=== PATIENT | female | born 1965 | race Caucasian/White ===

== ENCOUNTER 2019-12-10 08:00 | Outpatient (CLI) | payer BC, SELFPAY ==
--- NOTE | ~2019-12-10 | MM_ITS ---
EXAMINATION: MM scrn marylu implant BI w sha HISTORY: Screening mammogram TECHNIQUE: Craniocaudal and mediolateral oblique 3-D tomosynthesis images with implant displacement a nd synthetic 2-D images were generated. Craniocaudal and mediolateral oblique views of the breasts wi thout implant displacement were obtained using full field digital mammography. CAD analysis was submi tted and interpreted. COMPARISON: 07/23/2016 diagnostic right implant digital mammogram 07/18/2016 bilateral implant digital screening mammogram examination BREAST PARENCHYMAL COMPOSITION: The breasts are heterogeneously dense, which may obscure small masses . FINDINGS: Status post bilateral augmentation mammoplasty. Stable fibroglandular asymmetry. There is no evidence of suspicious mass, calcification, or senior network architect ural distortion to suggest malignancy in either breast. There has been no suspicious interval change. IMPRESSION: 1. No mammographic evidence of malignancy. 2. Recommend routine screening mammography in one year. BI-RADS Category 1: Negative Reviewed, dictated and finalized at location A.
== END 2019-12-10 08:01 | disposition home or self-care (01) ==
LOC: ANHIMG 08:05
PROVIDERS: PCP Family Medicine; Visit Provider Nurse Practitioner Family
DX: Z12.31 Encounter for screening mammogram for malignant neoplasm of breast (principal)
CPT/HCPCS: 77063; 77067

== ENCOUNTER 2020-11-29 14:59 | Emergency (ER) | payer BC, SELFPAY ==
--- NOTE | 2020-11-29 15:10 | ECG_ITS ---
Measurements Intervals [place] Rate: 74 P: 64 MA: 144 QRS: 71 QRSD: 88 T: 60 QT: 352 QTc: 393 Interpretive Statements SINUS RHYTHM POSSIBLE LEFT ATRIAL ENLARGEMENT BORDERLINE ECG Electronically Signed On 11-29-2020 15:26:03 CDT by Mehdi Bella D.O.
[2020-11-29 15:11] VITALS: BP 128/83; PULSE 76; RESP 20; TEMP 36.3; O2SAT 98
[2020-11-29 15:25] LABS: Basophils Percent Auto 0.5 % (0.2-1.2); Eosinophils Absolute Auto 0.1 K/mm3 (0-0.3); Eosinophils Percent Auto 1.8 % (0-4.4); Hematocrit 40.7 % (37.0-47.0); Hemoglobin 13.7 g/dL (12.0-15.0); Immature Granulocyte Absolute 0.01 K/mm3 (0.00-0.031); Immature Granulocyte Percent A 0.1 % (0-0.5); Lymphocytes Absolute Auto 3.74 K/mm3 (0.9-3.2); Lymphocytes Percent Auto 48.1 % (18.3-44.2); Mean Corpuscular HGB Conc 33.7 g/dl (32-36); Mean Corpuscular Hemoglobin 30.6 pg (26-34); Mean Corpuscular Volume 90.8 fl (80-100); Mean Platelet Volume 10.4 fl (7.4-10.4); Monocytes Absolute Auto 0.5 K/mm3 (0.1-0.6); Monocytes Percent Auto 6.3 % (2.6-8.5); Neutrophils Absolute Auto 3.4 K/mm3 (1.3-6.7); Neutrophils Percent Auto 43.2 % (45.5-73.1); Platelet Count Result 267 k/mm3 (150-375); Red Blood Count 4.48 M/mm3 (4.2-5.4); Red Cell Distribution Width 12.7 % (11.5-14.5); White Blood Count 7.8 K/mm3 (4.5-10.0)
[2020-11-29 15:30] LABS: INR 0.9; Prothrombin Time 12.9 Seconds (11.1-14.7)
[2020-11-29 15:31] LABS: Partial Thromboplastin Time 24.7 SECONDS (22.3-36.8)
[2020-11-29 15:32] LABS: Anion Gap 6 mmol/L (8-16); Blood Urea Nitrogen 19 mg/dL (7-17); Calcium 9.3 mg/dL (8.4-10.2); Carbon Dioxide 27 mmol/L (22-30); Chloride 105 mmol/L (98-107); Estimated CRCL calculation 55 ml/min; Estimated Glomerular Filt Rate > 60; Glucose 117 mg/dL (65-105); Sodium 138 mmol/L (137-145)
[2020-11-29 15:43] LABS: Troponin I < 0.012 ng/mL (0.000-0.034)
[2020-11-29 15:49] LABS: Atypical Lymphocytes Present; Platelet Estimate Adequate (Adequate)
--- NOTE | 2020-11-29 16:52 | PC.NURSE ---
patient at intake desk states How long is this going to take, I have already been here for over an hour. I am going to go to another hospital then. patient walked out of ED without difficulty and in no distress.
== END 2020-11-29 16:52 | disposition left against medical advice (07) ==
LOC: ANHED 17:02
PROVIDERS: Emergency Provider Emergency Medicine; PCP Family Medicine
DX: R06.02 Shortness of breath (principal)
CPT/HCPCS: 36415; 80048; 84484; 85025; 85610; 85730; 93005; 99199

== ENCOUNTER → 2020-12-01 16:07 | Outpatient (CLI) | payer BC, SELFPAY ==
--- NOTE | ~2020-12-01 | XR_ITS ---
XR chest 2V DATE: 12/01/2020 16:22 INDICATION: Chest pain TECHNIQUE: PA and lateral views COMPARISON: 05/20/2017 two-view chest FINDINGS: There is bilateral hyperinflation. No pulmonary infiltrate or consolidation, pleural effusi on or pulmonary vascular congestion or pneumothorax is evident. There is mild right greater than left apical scarring. Normal heart size. No hilar or mediastinal enlargement. Diffuse osteopenia. IMPRESSION: Bilateral hyperinflation; no active cardiopulmonary disease Osteopenia Reviewed, dictated and finalized at location A.
== END ==
PROVIDERS: PCP Family Medicine; Visit Provider Nurse Practitioner Family
DX: R07.9 Chest pain, unspecified (principal); M85.88 Other specified disorders of bone density and structure, other site
CPT/HCPCS: 71046

== ENCOUNTER → 2022-02-22 11:05 | Outpatient (CLI) | payer BC, SELFPAY ==
--- NOTE | ~2022-02-22 | US_ITS ---
US soft tissue head and neck DATE: 02/22/2022 11:33 INDICATION: Neck pain TECHNIQUE: Real-time imaging of the right neck and complaint of pain and swelling COMPARISON: None FINDINGS: No abnormal soft tissue mass, lymphadenopathy or abnormal fluid collection is identified. IMPRESSION: No apparent abnormality; if there are continued complaints, CT neck examination is recomm ended. Reviewed, dictated and finalized at Location A. Reviewed, dictated and finalized at location A. IMPRESSION: No apparent abnormality; if there are continued complaints, CT neck examination is recommended.
== END ==
PROVIDERS: PCP Nurse Practitioner Family; Visit Provider Nurse Practitioner Family
DX: M54.2 Cervicalgia (principal)
CPT/HCPCS: 76536

== ENCOUNTER 2022-07-06 09:52 | Emergency (ER) | payer BC, SELFPAY ==
[2022-07-06 10:40] VITALS: BP 136/96; PULSE 80; RESP 12; TEMP 36.4; O2SAT 100
--- NOTE | 2022-07-06 11:55 | ED.GENADULT ---
HPI - General Adult General Chief complaint: Urogenital-Female Stated complaint: UTI Time Seen by Provider: 07/06/22 11:55 Source: patient Mode of arrival: ambulatory Limitations: no limitations History of Present Illness HPI narrative: 57-year-old female patient presents to the [facility] with complaints of urinary symptoms that started yesterday. Patient states she has had urgency, frequency, low back pain. Patient denies any fevers, body aches or chills. Patient states she has had a little bit of lower suprapubic pain. Related Data Home Medications Medication Instructions Recorded Confirmed buspirone 10 mg tablet 10 mg PO DAILY 07/06/22 07/06/22 diclofenac sodium 50 mg 50 mg PO DAILY 07/06/22 07/06/22 tablet,delayed release furosemide 20 mg tablet 20 mg PO DAILY 07/06/22 07/06/22 trazodone 50 mg tablet 50 mg PO DAILY 07/06/22 07/06/22 Allergies Allergy/AdvReac Type Severity Reaction Status Date / Time gadobenic acid Allergy Intermediate Nausea and Verified 07/06/22 11:10 [From contrast - MRI] Vomiting iohexol Allergy Intermediate Nausea and Verified 07/06/22 11:10 [From contrast - CT, X-RAY] Vomiting Review of Systems Review of Systems: CONSTITUTIONAL: Denies fever, chills, or sweats. EYES: Denies visual changes, redness, or discharge. ENT: Denies rhinorrhea, congestion, sore throat, or otalgia. CARDIOVASCULAR: Denies chest pain, palpitations, or edema. RESPIRATORY: Denies cough or dyspnea. GASTROINTESTINAL: Denies abdominal pain, nausea, vomiting, or diarrhea. GENITOURINARY: Positive dysuria denies hematuria. SKIN: Denies rash or itching. MUSCULOSKELETAL: Positive low back pain, denies joint pain, or myalgia. NEUROLOGIC: Denies headache, numbness, or weakness. PSYCHIATRIC: Denies anxiety or depression. [facility] Past Medical History Medical History Depression Surgical History Surgical History H/O: hysterectomy Comments At the time of my signature I agree with nursing past medical history, surgical, social, and family history. There is no relevant family history pertinent to the presenting complaint. Exam Narrative: GENERAL: Well-appearing, well-nourished, and in no acute distress. HEAD: Normocephalic, atraumatic. EYES: PERRLA and EOMI. ENT: Nares clear, no rhinorrhea or epistaxis. Mucous membranes moist. NECK: Supple. No lymphadenopathy CHEST: Clear to auscultation. No respiratory distress. HEART: Regular rate and rhythm. No murmur heard. Normal peripheral pulses. ABDOMEN: Soft, nontender, nondistended, normal active bowel sounds. No CVA tenderness on percussion EXTREMITIES: Normal range of motion. No edema. SKIN: Warm, dry, no rash. NEURO: No focal deficits. Alert and oriented x3. Course Course Level of Care: Express Care Visit Vital Signs Vital signs: Vital Signs Temperature 36.4 C L 07/06/22 10:40 Pulse Rate 80 07/06/22 10:40 Respiratory Rate 12 07/06/22 10:40 Blood Pressure 136/96 H 07/06/22 10:40 Pulse Oximetry 100 07/06/22 10:40 Temperature 36.4 C L 07/06/22 10:40 Pulse Rate 80 07/06/22 10:40 Respiratory Rate 12 07/06/22 10:40 Blood Pressure 136/96 H 07/06/22 10:40 Pulse Oximetry 100 07/06/22 10:40 Vital signs reviewed The patient has been informed that they may have pre-hypertension or Hypertension based on a BP reading in the department. I recommend that the patient call the primary care provider listed on their discharge instructions or a physician of their choice this week to arrange follow up for further evaluation of possible pre-hypertension or Hypertension Medical Decision Making MDM Narrative Medical decision making narrative: Discussed with patient that her urine dip is suggestive of urinary tract infection. We will discharge her home with an antibiotic as well as an antifungal since she does typically get yeast infe
== END 2022-07-06 12:07 | disposition home or self-care (01) ==
PROVIDERS: Emergency Provider Nurse Practitioner Family; PCP Family Medicine
DX: N39.0 Urinary tract infection, site not specified (principal); F32.A Depression, unspecified
CPT/HCPCS: 81003; 87086; 87088; 99213; G0463

== ENCOUNTER 2023-06-23 01:20 | Day surgery (SDC) | payer BC, SELFPAY ==
[2023-06-11 13:19] VITALS: BMI 25.1
--- NOTE | 2023-06-20 10:23 | SUR.PREOP ---
Patient called regarding upcoming procedure. Reviewed preop instructions, appointment times, and procedure prep.
--- NOTE | 2023-06-20 10:24 | SUR.PREOP ---
Patient called regarding upcoming procedure. Reviewed preop instructions, appointment times, and procedure prep.
[2023-06-23 06:47] VITALS: BP 146/81; PULSE 75; RESP 20; TEMP 36.2; O2SAT 98; BMI 25.2
[2023-06-23] MEDS: LACTATED RINGERS 1,000 ML 150 ML IV CONT (07:04)
--- NOTE | 2023-06-23 07:36 | P.PNAN_ITS ---
Anes - Initial Pre Proc Eval Procedure: Operation Date: 06/23/23 08:00 Proposed Procedures p Screening Colonoscopy - Yovanny Lezama MD Date/Time: 06/23/23 07:36 Surgeon: Yovanny Lezama MD Pre Op Diagnosis: neoplasm screening Patient Data Age: 58 Gender: F Height: 1.65 m Weight: 68.9 kg Last Vital Signs Temp 97.2 F L 06/23/23 06:47 Pulse 75 06/23/23 06:47 Resp 20 06/23/23 06:47 BP 146/81 H 06/23/23 06:47 Pulse Ox 98 06/23/23 06:47 O2 Del Method Room Air 06/23/23 06:47 Allergies Allergy/AdvReac Type Severity Reaction Status Date / Time gadobenic acid Allergy Intermediate Nausea and Verified 06/23/23 06:46 [From contrast - MRI] Vomiting iohexol Allergy Intermediate Nausea and Verified 06/23/23 06:46 [From contrast - CT, X-RAY] Vomiting Home Medications Medication Instructions Recorded Confirmed Type furosemide 20 mg tablet 20 mg PO DAILY 07/06/22 06/23/23 History trazodone 50 mg tablet 50 mg PO DAILY 07/06/22 06/23/23 History celecoxib 200 mg capsule 200 mg PO DAILY 06/11/23 06/23/23 History escitalopram oxalate 10 mg tablet 10 mg PO DAILY 06/11/23 06/23/23 History Patient hx anesthesia problems: none Family hx anesthesia problems: none Results Review: All pre-operative results and documents have been reviewed as part of the pre- operative evaluation. [facility] Past Medical History Medical History Depression Surgical History Surgical History H/O: hysterectomy Social History Social History Smoking status: Current every day smoker Tobacco type: e-cigarettes/vaping Alcohol use details: occasionally Substance use: never Substance use type: does not use Living arrangements: with family Spiritual care concerns: No Anes - Eval Final PreProcedure Day of Procedure 06/23/23 07:36 Patient weight: normal Heart: regular rate and rhythm Lungs: clear to auscultation Airway: Mallampati scale class II Neurological: alert and oriented Last oral intake: >/= 8 hours ASA classification: II Emergent: no Anesthetic plan: proceed Anesthesia type and monitoring: general GIVS and standard monitoring Results Review: All pre-operative results and documents have been reviewed as part of the pre- operative evaluation. Informed Consent: The patient's anesthetic plan and its attendant risks and benefits were discussed with the patient/family/POA. Questions were solicited and answers provided to the satisfaction of the patient/family/POA.
--- NOTE | 2023-06-23 07:54 | PM.HPGS ---
History of Present Illness History of Present Illness Consent: Risks, benefits, and alternatives have been discussed and questions answered. Patient agrees to proceed with procedure. Chief complaint: neoplasm screening Narrative: Brianne Leung is a 58 year old female here for screening colonoscopy, last one 7 years ago, recently noted rectal bleeding Review of Systems Constitutional: Constitutional: Denies headache(s) and Denies weakness Eyes: Eyes: Denies blurry vision ENT: Reports Normal hearing present, Denies headache(s) and Denies neck pain Cardiovascular: Cardiovascular: Denies chest pain and Denies dyspnea Respiratory: Respiratory: Denies dyspnea Gastrointestinal: Gastrointestinal: Reports no additional gastrointestinal complaints Genitourinary: Genitourinary: Denies dysuria Musculoskeletal: Musculoskeletal: Denies neck pain Integumentary/Breasts: Skin/Breast: Denies dry skin Neurologic: Reports Normal hearing present, Denies headache(s) and Denies weakness Psychiatric: Psychiatric: Denies anxiety Endocrine: Endocrine: Denies change in body appearance Hematologic/Lymphatic: Hematologic/Lymphatic: Denies easy bleeding Allergic/Immunologic: Allergic/Immunologic: Denies urticaria PMF Past Medical History Medical History (Updated 06/23/23 @ 07:56 by Yovanny Lezama MD) Colon cancer screening Depression Surgical History Surgical History H/O: hysterectomy Social History Social History Smoking status: Current every day smoker Tobacco type: e-cigarettes/vaping Alcohol use details: occasionally Substance use: never Substance use type: does not use Living arrangements: with family Spiritual care concerns: No Meds Home Medications and Allergies Home Medications Medication Instructions Recorded Confirmed Type furosemide 20 mg tablet 20 mg PO DAILY 07/06/22 06/23/23 History trazodone 50 mg tablet 50 mg PO DAILY 07/06/22 06/23/23 History celecoxib 200 mg capsule 200 mg PO DAILY 06/11/23 06/23/23 History escitalopram oxalate 10 mg tablet 10 mg PO DAILY 06/11/23 06/23/23 History Allergies Allergy/AdvReac Type Severity Reaction Status Date / Time gadobenic acid Allergy Intermediate Nausea and Verified 06/23/23 06:46 [From contrast - MRI] Vomiting iohexol Allergy Intermediate Nausea and Verified 06/23/23 06:46 [From contrast - CT, X-RAY] Vomiting Vital Signs Vital Signs - 24 hr 06/23/23 06:47 Temperature 97.2 F L Pulse Rate 75 Respiratory Rate 20 Blood Pressure 146/81 H Pulse Oximetry 98 Oxygen Delivery Room Air Exam Const: General: comfortable and no acute distress HENMT: Face/Nose/Sinus: Normal nares present Eyes: General: appearance normal, both eyes and all related structures Neck: Neck: no JVD Resp: Auscultation: clear to auscultation bilaterally Cardio: Rate: regular rate Rhythm: regular rhythm GI: Inspection: non-distended GI Palp: Yes Soft to palpation Skin: General skin exam: normal color Neuro: General: gait normal Speech: normal speech Extrem: General: normal to inspection Psych: Mental Status: mental status grossly normal Assessment and Plan Assessment and plan (1) Colon cancer screening: Code(s): Z12.11 - Encounter for screening for malignant neoplasm of colon Status: Acute Assessment and Plan: colonoscopy
[2023-06-23 08:15] VITALS: BP 107/64; PULSE 70; RESP 14; O2SAT 95
[2023-06-23 08:25] VITALS: BP 105/65; PULSE 62; RESP 13; O2SAT 96
[2023-06-23 08:35] VITALS: BP 105/65; PULSE 65; RESP 22; O2SAT 99
== END 2023-06-23 08:48 | disposition home or self-care (01) ==
PROVIDERS: PCP Family Medicine; Visit Provider Internal Medicine Gastroenterology
PROC: 0DJD8ZZ Inspection of Lower Intestinal Tract, Via Natural or Artificial Opening Endoscopic (ICD-10-PCS; CPT 45378; principal; 2023-06-23 08:00)
DX: Z12.11 Encounter for screening for malignant neoplasm of colon (principal); K64.8 Other hemorrhoids; K62.3 Rectal prolapse; K63.5 Polyp of colon; F32.A Depression, unspecified; F17.290 Nicotine dependence, other tobacco product, uncomplicated
CPT/HCPCS: 45380; 88305; J2704; J7120

== ENCOUNTER 2023-09-26 12:57 | Outpatient (CLI) | payer BC, SELFPAY ==
--- NOTE | ~2023-09-26 | DEXA_ITS ---
Bone Density Report Name: JEAN RUSSO Age: 58 Sex: Female Ethnicity: White Date of : 1965 Indication: osteopenia; hysterectomy; postmenopausal Referring Provider: Saqib, Selene Study: Bone densitometry was performed. Exam Date: September 26, 2023 Accession number: [id number] Bone Density: Region BMD T-score Z-score Classification AP Spine (L1-L4) 0.740 -2.8 -1.4 Osteoporosis Femoral Neck (Left) 0.696 -1.4 -0.1 Osteopenia Total Hip (Left) 0.795 -1.2 -0.3 Osteopenia Femoral Neck (Right) 0.716 -1.2 0.1 Osteopenia Total Hip (Right) 0.797 -1.2 -0.3 Osteopenia Total Hip Mean 0.796 -1.2 -0.3 Osteopenia World Health Organization criteria for BMD impression classify patients as: Normal (T-score at or above -1.0), Osteopenia (T-score between -1.0 and -2.5), or Osteoporosis (T-score at or below -2.5). 10-year Fracture Risk: FRAX not reported because: Some T-score for Spine Total or Hip Total or Femoral Neck at or below -2.5 Previous Exams: Region Exam Age BMD T-score BMD Change BMD Change Date g/cm2 vs Baseline vs Previous AP Spine(L1-L4) 09/26/2023 58 0.740 -2.8 -0.052* -0.073* 07/18/2016 51 0.813 -2.1 0.021 0.021 04/05/2011 46 0.792 -2.3 Total Hip(Left) 09/26/2023 58 0.795 -1.2 -0.047* -0.052* 07/18/2016 51 0.847 -0.8 0.006 0.006 04/05/2011 46 0.841 -0.8 Total Hip(Right) 09/26/2023 58 0.797 -1.2 -0.041* -0.049* 07/18/2016 51 0.846 -0.8 0.008 0.008 04/05/2011 46 0.838 -0.9 *Denotes significance at 95% confidence level, LSC for AP Spine = 0.022 g/cm2, LSC for Total Hip = 0.027 g/cm2 Clinical Information Provided by Patient: Smokes Has the following medical conditions: Hysterectomy Patient maximum height was 65.8 Menopause Age: 31 No regular weight bearing exercise Does not regularly consume dairy products Drinks caffeinated beverages Onset of menses at age 14 Number of children 2 Missed period for more than 6 months in a row Impression: The patient has osteoporosis, based on the Total Spine T-score. The patient has risk factors, including: smoking. The BMD for the AP Spine(L1-L4) decreased, changing by -0.073 since the last DXA exam. The BMD for the Total Hip(Left) decreased, changing by -0.052 since the last DXA exam. The BMD for the Total Hip(Right) decreased, changing by -0.049 since the last DXA exam.
--- NOTE | ~2023-09-26 | MM_ITS ---
EXAMINATION: MM scrn marylu implant BI w sha HISTORY: Screening mammogram TECHNIQUE: Craniocaudal and mediolateral oblique 3-D tomosynthesis images with implant displacement a nd synthetic 2-D images were generated. Craniocaudal and mediolateral oblique views of the breasts wi thout implant displacement were obtained using full field digital mammography. CAD analysis was submi tted and interpreted. COMPARISON: December 10, 2019 bilateral implant screening mammogram BREAST PARENCHYMAL COMPOSITION: The breasts are heterogeneously dense, which may obscure small masses . FINDINGS: Status post bilateral augmentation mammoplasty. There is no evidence of suspicious mass, ca lcification, or architectural distortion to suggest malignancy in either breast. There has been no davis spicious interval change. IMPRESSION: 1. No mammographic evidence of malignancy. 2. Recommend routine screening mammography in one year. BI-RADS Category 1: Negative Reviewed, dictated and finalized at location A. 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
== END 2023-09-26 12:58 ==
LOC: MICIMG 13:00
PROVIDERS: PCP Family Medicine; Visit Provider Nurse Practitioner Family
DX: Z12.31 Encounter for screening mammogram for malignant neoplasm of breast (principal); Z78.0 Asymptomatic menopausal state; M81.0 Age-related osteoporosis without current pathological fracture; M85.852 Other specified disorders of bone density and structure, left thigh; M85.851 Other specified disorders of bone density and structure, right thigh
CPT/HCPCS: 77063; 77067; 77080

== ENCOUNTER 2023-10-06 13:20 | Outpatient (CLI) | payer BC, SELFPAY ==
--- NOTE | ~2023-10-06 | CT_ITS ---
CT Scan of the Chest without Contrast: Clinical Indication: Lung cancer screening, personal history of nicotine dependence Technique: Contiguous sections were acquired throughout the chest without intravenous contrast. Dose reduction technique was used on this scan by utilizing automated exposure control and iterative recon struction technique. The dose-length product (DLP) was 57.36 mGy-cm. Findings: There is no evidence of any significant mediastinal, hilar or axillary lymphadenopathy. The mediastin al soft tissues appear normal. There is no evidence of pleural or pericardial effusion. The lungs are clear. No pulmonary nodules or infiltrates are noted. Images through the upper abdomen reveal no abnormalities. Impression: Lung RADS 1: Negative. 12 month follow-up screening CT advised. Reviewed, dictated and finalized at location . 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 12 month follow-up screening CT advised.
== END 2023-10-06 13:21 ==
LOC: MICIMG 13:22
PROVIDERS: PCP Family Medicine; Visit Provider Family Medicine
DX: Z12.2 Encounter for screening for malignant neoplasm of respiratory organs (principal); F17.200 Nicotine dependence, unspecified, uncomplicated
CPT/HCPCS: 71271

== ENCOUNTER 2024-08-06 16:05 | Emergency (ER) | payer BC, SELFPAY ==
--- NOTE | ~2024-08-06 | XR_ITS ---
EXAMINATION: XR chest 1V portable DATE: 08/06/2024 17:53 INDICATION: Left rib pain. Chest pain with inspiration. TECHNIQUE: A single frontal view of the chest was obtained. COMPARISON: Chest 2 views 12/01/2020, chest CT 10/06/2023 FINDINGS: There is mild scarring at the lung apices. No pleural effusion or pneumothorax. The heart s ize is normal. Breast implants are noted. IMPRESSION: 1. Mild scarring at the lung apices. Reviewed, dictated and finalized at location A. NED GLASS PAINTER
[2024-08-06 16:09] VITALS: BP 121/64; PULSE 71; RESP 20; TEMP 36.2; O2SAT 100
[2024-08-06 17:30] VITALS: BP 132/66; PULSE 57; RESP 16; O2SAT 100
--- NOTE | 2024-08-06 17:39 | ED_ITS ---
HPI - Back Pain/Injury General Chief Complaint: Back Pain/Injury Stated Complaint: flank pain Time Seen by Provider: 08/06/24 17:02 Source: patient Mode of arrival: ambulatory Limitations: no limitations History of Present Illness HPI Narrative: 59-year-old female who presents to the ED for chief complaint of left flank pain beginning earlier today. Patient states that she may have slept on her back wrong a couple days ago and had some left upper back pain but this went away yesterday. States that after the shower today she noticed a lot of increased pain in her left side/left flank area. It is worse with any kind of movement. Worse with inspiration. She states the only time she has had pain like this in the past was with pleurisy. She was around her granddaughter recently who had walking pneumonia. Patient states that she herself has been feeling fine. Denies fevers, chills, abdominal pain, urinary symptoms, N/V/D, chest pain, cough. Related Data Home Medications ?Medication ?Instructions ?Recorded ?Confirmed ?Last Taken ?Type furosemide 20 mg tablet 20 mg PO DAILY 07/06/22 06/23/23 06/22/23 History trazodone 50 mg tablet 50 mg PO DAILY 07/06/22 06/23/23 06/22/23 History celecoxib 200 mg capsule 200 mg PO DAILY 06/11/23 06/23/23 06/22/23 History escitalopram oxalate 10 mg tablet 10 mg PO DAILY 06/11/23 06/23/23 06/22/23 History Allergies Allergy/AdvReac Type Severity Reaction Status Date / Time gadobenic acid (From Allergy Intermediate Nausea and Verified 08/06/24 16:06 contrast - MRI) Vomiting iohexol (From contrast - CT, Allergy Intermediate Nausea and Verified 08/06/24 16:06 X-RAY) Vomiting Review of Systems 2 Review of Systems: All systems as dictated in HPI [facility] Past Medical History Medical History (Updated 08/06/24 @ 20:06 by Boris Bruno PA-C) Rectal bleeding Rectal prolapse Colon cancer screening Depression Surgical History Surgical History H/O: hysterectomy Social History Social History Smoking status: Current every day smoker Tobacco type: e-cigarettes/vaping Alcohol use details: occasionally Substance use: never Substance use type: does not use Living arrangements: with family Spiritual care concerns: No Exam 2 Narrative: GENERAL: Well-appearing, well-nourished, and in no acute distress. HEAD: Normocephalic, atraumatic. EYES: PERRLA and EOMI. ENT: Nares clear, no rhinorrhea or epistaxis. Mucous membranes moist. Oropharynx without tonsillar hypertrophy exudate or other lesions. NECK: Supple. No adenopathy or masses. CHEST: No respiratory distress. Clear to auscultation. No wheezes rales or rhonchi HEART: Regular rate and rhythm. No murmur heard. Normal peripheral pulses. ABDOMEN: Soft, nontender, nondistended, normal active bowel sounds. MSK: Focal tenderness to the left lateral/posterior ribs. Pain is reproducible with range of motion of the spine and left shoulder. Ambulatory without assistance. No extremity bruising or edema SKIN: Warm, dry, no rash. NEURO: Alert and oriented x4. No focal deficits. PSYCH: Normal mood and affect. Course Vital Signs Vital signs: Vital Signs Temperature 97.1 F L 08/06/24 16:09 Pulse Rate 71 08/06/24 16:09 Respiratory Rate 20 08/06/24 16:09 Blood Pressure 121/64 08/06/24 16:09 Pulse Oximetry 100 08/06/24 16:09 Oxygen Delivery Room Air 08/06/24 16:09 Temperature 97.1 F L 08/06/24 16:09 Pulse Rate 71 08/06/24 20:15 Respiratory Rate 17 08/06/24 20:15 Blood Pressure 142/76 H 08/06/24 20:15 Pulse Oximetry 98 08/06/24 20:15 Oxygen Delivery Room Air 08/06/24 16:09 MDM - Back Pain/Injury MDM Narrative Medical decision making narrative: This is a 59-year-old female who presents to the ED for chief complaint of left flank/left mid back pain. Vitals are normal. Exam remarkable for the above. She has reproducible musculoskeletal pain with certain motions and with palpation. Shared decision making regarding workup, as I have low suspicion for acute cardiopulmonary pathology or something like a nephrolithiasis that could be causing the pain. I did offer CT imaging for the above but she is declining. We have agreed to gather blood work and a chest x-ray. No acute findings on the chest x-ray and lab work is unremarkable overall. Urinalysis shows 1+ leuks and 1+ bacteria but no other infectious markers. Culture is pending. Patient was given Toradol and Norflex here with mild relief of symptoms. She feels ready to go on re-evaluation. Presentation consistent with musculoskeletal strain. Pt will be discharged in stable condition. Return precautions given and supportive measures discussed. Pt is understanding and agreeable with plan for discharge and follow-up with PCP. Lab Data 08/06/24 17:53 08/06/24 17:53 Labs: Lab Results 08/06/24 08/06/24 Range/Units 17:53 19:00 WBC 6.1 (4.5-10.0) K/mm3 RBC 4.35 (4.2-5.4) M/mm3 Hgb 13.3 (12.0-15.0) g/dL Hct 40.2 (37.0-47.0) % MCV 92.4 (80-100) fl MCH 30.6 (26-34) pg MCHC 33.1 (32-36) g/dl RDW 12.6 (11.5-14.5) % Plt Count 238 (150-375) k/mm3 MPV 10.8 H (7.4-10.4) fl Immature Gran % (Auto) 0.2 (0-0.5) % Neut % (Auto) 51.5 (45.5-73.1) % Lymph % (Auto) 38.5 (18.3-44.2) % [place] % (Auto) 8.3 (2.6-8.5) % Eos % (Auto) 1.0 (0-4.4) % Baso % (Auto) 0.5 (0.2-1.2) % Lymph # (Auto) 2.35 (0.9-3.2) K/mm3 Hettinger # (Auto) 0.5 (0.1-0.6) K/mm3 Eos # (Auto) 0.1 (0-0.3) K/mm3 Baso # (Auto) 0.0 (0.0-0.1) K/mm3 Abs Immat Gran (auto) 0.01 (0.00-0.031) K/mm3 Absolute Neuts (auto) 3.2 (1.3-6.7) K/mm3 Absolute Nucleated RBC 0.000 (0.0-0.012) K/mm3 Nucleated RBC % 0.0 (0.0-0.2) % Sodium 138 (137-145) mmol/L Potassium 4.1 (3.4-5.0) mmol/L Chloride 105 (98-107) mmol/L Carbon Dioxide 28 (22-30) mmol/L Anion Gap 5 (4-12) mmol/L BUN 23 H (7-17) mg/dL Creatinine 1.00 (0.7-1.0) mg/dL Estim Creat Clear Calc 48 ml/min Estimated GFR 57 L (59 - ) Glucose 90 (65-110) mg/dL Calcium 9.4 (8.4-10.2) mg/dL Total Bilirubin 0.5 (0.2-1.3) mg/dL AST 26 (14-36) U/L ALT 17 (6-35) U/L Alkaline Phosphatase 58 (38-126) U/L Total Protein 7.0 (6.3-8.2) g/dL Albumin 4.3 (3.5-5.1) g/dL Lipase 196 (23-300) U/L Urine Color Yellow (Yellow) Urine Appearance Clear (Clear) Urine pH 6.5 (5.0-9.0) Ur Specific [place] 1.026 (1.001-1.035) Urine Protein Negative (Negative) mg/dL Urine Glucose (UA) Negative (Negative) mg/dL Urine Ketones Negative (Negative) mg/dL Ur Blood (Man) Negative (Negative) Urine Nitrate Negative (Negative) Urine Bilirubin Negative (Negative) Urine Urobilinogen 1.0 (<2.0) mg/dL Add Ur Microanalysis Reviewed Leukocyte Esterase Rfl 1+ H (Negative) LETICIA/UL Urine RBC 0-2 (0-2) /hpf Urine WBC 0-5 (0-3) /hpf Ur Squamous Epith Cells Moderate (Few) /hpf Urine Bacteria 1+ H /hpf Urine Casts 0-2 Urine Mucus Present /lpf Discharge Plan Discharge Clinical Impression: Musculoskeletal back pain Patient Disposition: Home, Self-Care Condition: Stable Instructions: Antibiotic Form, Back Pain (ED) Additional Instructions: Your exam and workup today are reassuring. Please take anti-inflammatories regularly along with cyclobenzaprine as needed. This probably will resolve over the next 4-5 days. If you have any new or worsening symptoms please return to the ER for further evaluation. Patient Language: Mauritanian Prescriptions: New cyclobenzaprine 10 mg tablet 10 mg PO HS PRN (Reason: muscle spasm) Qty: 10 0RF No Action trazodone 50 mg tablet 50 mg PO DAILY furosemide 20 mg tablet 20 mg PO DAILY celecoxib 200 mg capsule 200 mg PO DAILY escitalopram oxalate 10 mg tablet 10 mg PO DAILY Follow-up/Referrals: Serjio Gutierrez MD [Primary Care Provider] - Time of Disposition: 20:06
[2024-08-06] MEDS: KETOROLAC 30 MG/ML VIAL (*BKC) IV PUSH (17:54)
[2024-08-06] MEDS: ORPHENADRINE CITRATE 100 MG TABLET.ER PO (17:54)
[2024-08-06 17:59] LABS: Basophils Percent Auto 0.5 % (0.2-1.2); Eosinophils Absolute Auto 0.1 K/mm3 (0-0.3); Hematocrit 40.2 % (37.0-47.0); Hemoglobin 13.3 g/dL (12.0-15.0); Immature Granulocyte Absolute 0.01 K/mm3 (0.00-0.031); Immature Granulocyte Percent A 0.2 % (0-0.5); Lymphocytes Absolute Auto 2.35 K/mm3 (0.9-3.2); Lymphocytes Percent Auto 38.5 % (18.3-44.2); Mean Corpuscular HGB Conc 33.1 g/dl (32-36); Mean Corpuscular Hemoglobin 30.6 pg (26-34); Mean Corpuscular Volume 92.4 fl (80-100); Mean Platelet Volume 10.8 fl (7.4-10.4); Monocytes Absolute Auto 0.5 K/mm3 (0.1-0.6); Monocytes Percent Auto 8.3 % (2.6-8.5); Neutrophils Absolute Auto 3.2 K/mm3 (1.3-6.7); Neutrophils Percent Auto 51.5 % (45.5-73.1); Platelet Count Result 238 k/mm3 (150-375); Red Blood Count 4.35 M/mm3 (4.2-5.4); Red Cell Distribution Width 12.6 % (11.5-14.5); White Blood Count 6.1 K/mm3 (4.5-10.0)
[2024-08-06 18:12] LABS: Lipase 196 U/L (23-300)
[2024-08-06 18:24] LABS: Alanine Aminotransferase 17 U/L (6-35); Albumin Level 4.3 g/dL (3.5-5.1); Alkaline Phosphatase 58 U/L (38-126); Anion Gap 5 mmol/L (4-12); Aspartate Amino Transferase 26 U/L (14-36); Bilirubin,Total 0.5 mg/dL (0.2-1.3); Blood Urea Nitrogen 23 mg/dL (7-17); Calcium 9.4 mg/dL (8.4-10.2); Carbon Dioxide 28 mmol/L (22-30); Chloride 105 mmol/L (98-107); Estimated CRCL calculation 48 ml/min; Estimated Glomerular Filt Rate 57; Glucose 90 mg/dL (65-110); Potassium 4.1 mmol/L (3.4-5.0); Sodium 138 mmol/L (137-145)
--- NOTE | 2024-08-06 18:44 | PC.NURSE ---
Pt called out, stating she had itching on her arm. Pts IV Levaquin stopped, EDP Boris FRANKS notified, order for 25mg Benadryl received and administered IV.
[2024-08-06 18:45] VITALS: BP 125/77; PULSE 56; RESP 16; O2SAT 98
[2024-08-06 19:45] VITALS: BP 121/64; PULSE 57; RESP 16; O2SAT 100
[2024-08-06 19:55] LABS: Add Urine Microscopic? YES; Appearance Urine Clear (Clear); Bacteria Urine 1+ /hpf; Bilirubin Urine Negative (Negative); Blood Urine Negative (Negative); Color Urine Yellow (Yellow); Glucose Urine UA Negative (Negative); Ketones Urine Negative (Negative); Leukocyte Esterase Ur 1+ LEU/UL (Negative); Mucus Urine Present /lpf; Need Manual Microscopic Reviewed; Nitrate Urine Negative (Negative); Non Pathogenic Casts 0-2; Protein Urine Negative (Negative); RBC Urine 0-2 /hpf (0-2); Specific Grav Ur 1.026 (1.001-1.035); Squamous Epithelial Cell Urine Moderate /hpf (Few); WBC Urine 0-5 /hpf (0-3); pH Urine 6.5 (5.0-9.0)
--- NOTE | 2024-08-06 20:08 | PC.NURSE ---
pt used call light appropriately to call for help to stand. this rn went to patent room to assist patient. upon entering room pt stated, I have been waiting for hours for you to come in here and discharge me and tell me what is wrong . this rn educated patient that an RN was just in there room and that there were no discharge available at this time but would speak to the provider. Pt then esclated and started stating, I am going to need my stuff and get my phone to call a ride, I am not feeling better, the nurse earlier stated it would take several hours. when am I leaving, I need to know what is wrong with me . this rn asked if patient had any relief. pt able to walk around room removing vital equipment with a steady unassisted gait at this time. pt states, I do not feel better, did you not hear me . this rn helped patient back into bed and stated she would let the provider know her concerns and tell provider that she was ready for discharge. luis e wray made aware.
[2024-08-06 20:15] VITALS: BP 142/76; PULSE 71; RESP 17; O2SAT 98
== END 2024-08-06 20:17 | disposition home or self-care (01) ==
PROVIDERS: Emergency Provider Physician Assistant; PCP Family Medicine
DX: M54.6 Pain in thoracic spine (principal); F17.290 Nicotine dependence, other tobacco product, uncomplicated; Z90.710 Acquired absence of both cervix and uterus
CPT/HCPCS: 36415; 71045; 80053; 81001; 83690; 85025; 87086; 96372; 99283; A9270; J1885

== ENCOUNTER 2024-09-28 07:40 | Outpatient (CLI) | payer BC, SELFPAY ==
--- NOTE | ~2024-09-28 | MM_ITS ---
EXAMINATION: MM scrn marylu implant BI w sha HISTORY: Screening mammogram TECHNIQUE: Craniocaudal and mediolateral oblique 3-D tomosynthesis images with implant displacement a nd synthetic 2-D images were generated. Craniocaudal and mediolateral oblique views of the breasts wi thout implant displacement were obtained using full field digital mammography. CAD analysis was submi tted and interpreted. COMPARISON: Comparison to multiple prior studies sequentially, with oldest reviewed study dated 07/18/2016. BREAST PARENCHYMAL COMPOSITION: Dense: The breasts are heterogeneously dense, which may obscure small masses FINDINGS: There are bilateral subpectoral saline implants. There is no evidence of suspicious mass, c alcification, or architectural distortion to suggest malignancy in either breast. There has been no s uspicious interval change. IMPRESSION: 1. No mammographic evidence of malignancy. 2. Recommend routine screening mammography in one year. BI-RADS Category 1: Negative Reviewed, dictated and finalized at location B. RANCE UNDERWRITER
== END 2024-09-28 07:41 | disposition home or self-care (01) ==
LOC: MICIMG 07:41
PROVIDERS: PCP Family Medicine; Visit Provider Family Medicine
DX: Z12.31 Encounter for screening mammogram for malignant neoplasm of breast (principal)
CPT/HCPCS: 77063; 77067

== ENCOUNTER 2025-05-05 16:15 | Outpatient (CLI) | payer BC, SELFPAY ==
--- OUTSIDE RECORDS SUMMARY | 2025-05-05 16:19 | XMS_ITS | Clinical Summary ---
Author Organization [facility] Address [address] [place] [address] Care Team Providers Care Home Health Aid Name Role Phone Emiliano Kelley MD Primary Care Provider José Luis villegas Social History Tobacco Use Types Packs/Day Years Used Date Smoking Tobacco: Never Assessed Comments Unknown Sex and Gender Information Value Date Recorded Sex Assigned at Not on file Legal Sex Female 7:30 PM CDT Gender Identity Not on file Sexual Orientation Not on file Last Filed Vital Signs Vital Sign Reading Time Taken Comments Blood Pressure 116/77 03/28/2015 8:21 AM CDT Pulse 88 03/28/2015 8:21 AM CDT Temperature - - Respiratory Rate - - Oxygen Saturation - - Inhaled Oxygen Concentration - - Weight 65.3 kg (144 lb) 03/28/2015 8:21 AM CDT Height 165.1 cm (5' 5) 03/28/2015 8:21 AM CDT Body Mass Index 23.96 03/28/2015 8:21 AM CDT Plan of Treatment Health Maintenance Due Date Last Done Comments Cervical Cancer Screening Pa p Smear (Age 30 to 64) Every 3 Years 1964 Colorectal Cancer Screening Colonoscopy (10 Years) 1964 Annual Physical 01/23/1967 Hepatitis C 01/23/1982 DTaP, Tdap and Td Vaccines ( 1 - Tdap) 01/23/1983 Cervical Cancer Screening Pa p with HPV Testing (Age 30 to 64) Every 5 Years 01/23/1994 Cervical Cancer Screening with HPV 01/23/1994 Mammogram Screening 2004 Pneumococcal Vaccine: 50+ Ye ars (1 of 1 - PCV) 01/23/2014 Zoster Vaccines (1 of 2) 01/23/2014 COVID-19 Vaccine ( - 2023-2 5 season) 2025 RSV Immunization or 60+ Years (1 - 1-dose 75+ series) 01/23/2039 Meningococcal B Vaccine Aged Out No l onger eligible based on patient's age to complete this topic Meningococcal Vaccine Aged Out No christina rubén eligible based on patient's age to complete this topic RSV Immunizations Under 20 Months Aged Out No longer eligible based on patient's age to complete this topic Care Teams Home Health Aid Relationship Specialty Start Date End Date Emiliano Kelley MD PCP - General 12/27/13
--- OUTSIDE RECORDS SUMMARY | 2025-05-05 16:19 | XMS_ITS | Encounter Summary ---
Author Organization [facility] Facility Care Team Providers Care Flattening Press Operator Name Role Phone Selene Cerrato NP Primary Care Provider [phone] Earle Montez MD Unavailable [phone] Sandra Nayak MD Primary Care Provider + Encounter Details Date Type Department Care Team (Latest Contact Info) Description 10/16/2016 Orders Only [facility] CLINCONV ProviderCheko MD [address] [place] [id number] Social History Tobacco Use Types Packs/Day Years Used Date Smoking Tobacco: Never Assessed Comments Unknown Sex and Gender Information Value Date Recorded Sex Assigned at Not on file Legal Sex Female 8:25 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 Historical Provider [facility] [place] Final Result documented in this encounter Visit Diagnoses Not on filedocumented in this encounter Care Teams Flattening Press Operator Relationship Specialty Start Date End Date Selene Cerrato NP PCP - General Internal Medicine 09/03/22 08/11/23 Sandra Nayak MD [address] [address] PCP - General Family Medicine 08/12/23 Earle Montez MD [id number] [place] [address] Surgeon Colon and Rectal Surgery 08/12/23 documented as of this encounter
--- OUTSIDE RECORDS SUMMARY | 2025-05-05 16:19 | XMS_ITS | Encounter Summary ---
Author Organization [facility] Facility Care Team Providers Care Senior Db2 Systems Programmer Name Role Phone Selene Cerrato NP Primary Care Provider [phone] Earle Montez MD Unavailable [phone] Sandra Nayak MD Primary Care Provider + Encounter Details Date Type Department Care Team (Latest Contact Info) Description 08/16/2016 Orders Only [facility] CLINCONV ProviderCheko MD [address] [place] [id number] Social History Tobacco Use Types Packs/Day Years Used Date Smoking Tobacco: Never Assessed Comments Unknown Sex and Gender Information Value Date Recorded Sex Assigned at Not on file Legal Sex Female 8:25 PM CLEANER TOUCH UP WORKER Gender Identity Not on file Sexual Orientation Not on file documented as of this encounter Plan of Treatment Not on file documented as of this encounter Procedures Procedure Name Priority Date/Time Associated Diagnosis Comments PROCEDURE - RESULT 08/16/2016 12 :00 AM CLEANER TOUCH UP WORKER documented in this encounter Results * PROCEDURE - RESULT (08/16/2016 12:00 AM CLEANER TOUCH UP WORKER) Narrative 08/16/2016 12:00 AM CLEANER TOUCH UP WORKER Ordered by an unspecified provider. Historical Provider Final Res ult documented in this encounter Visit Diagnoses Not on filedocumented in this encounter Care Teams Senior Db2 Systems Programmer Relationship Specialty Start Date End Date Selene Cerrato NP PCP - General Internal Medicine 09/03/22 08/11/23 Sandra Nayak MD [address] [place] [address] PCP - General Family Medicine 08/12/23 Earle Montez MD [address] [facility] [phone] [place] [address] Surgeon Colon and Rectal Surgery 08/12/23 documented as of this encounter
--- OUTSIDE RECORDS SUMMARY | 2025-05-05 16:19 | XMS_ITS | Encounter Summary ---
Author Organization [facility] Address [address] [place] [address] Phone Care Team Providers Care Mcat Instructor Name Role Phone Selene Cerrato NP Primary Care Provider [phone] Earle Montez MD Unavailable [phone] Sandra Nayak MD Primary Care Provider + Encounter Details Date Type Department Care Team (Late st Contact Info) Description 10/25/[address] 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
--- OUTSIDE RECORDS SUMMARY | 2025-05-05 16:19 | XMS_ITS | Clinical Summary ---
Author Organization [facility] Address [address] [facility] [place] [address] Care Team Providers Care Pediatric Associate Name Role Phone Earle Montez MD Unavailable [phone] Sandra Nayak MD Primary Care Provider + Allergies Active Allergy Reactions Criticality Noted Date Comments Other Rash Medium 07/31/2016 Medications albuterol HFA (PROVENTIL HFA,VENTOLIN HFA,PROAIR HFA) 90 mcg/actuation inhaler albuterol sulfate HFA 90 mcg/actuation aerosol inhaler INHALE 2 PUFFS BY MOUTH EVERY 4 TO 6 HOURS NEEDED Active calcium citrate (CALCITRATE) 950 mg (200 mg of elemental calcium) tablet Take 1,200 mg by mouth daily Active diclofenac DR (VOLTAREN) 50 mg EC tablet Take 1 tablet (50 mg total) by mouth 2 (two) times a day as needed 2 Active escitalopram (LEXAPRO) 10 mg tablet TAKE 1 TABLET BY MOUTH EVERY DAY. STOP TAKING BUSPIRONE. 3 Active furosemide (LASIX) 20 mg tablet Take 1 tablet (20 mg total) by mouth daily as needed 2 Active linaCLOtide (LINZESS) 290 mcg capsule Take 1 capsule (290 mcg total) by mouth daily before breakfast Active LORazepam (ATIVAN) 0.5 mg tablet lorazepam 0.5 mg tablet TAKE 1 TABLET BY MOUTH TWICE DAILY NEEDED Active traZODone (DESYREL) 100 mg tablet Take 1 tablet (100 mg total) by mouth nightly at bedtime 3 Active Active Problems Problem Noted Date Diagnosed Date Capsular contracture of breast implant 3 Overview (09/26/2022): Added automatically from request for surgery [id number] Surgical History Surgery Date Site/Laterality Comments AUGMENTATION MAMMAPLASTY 08/18/2001 - 08/17/2002 Bilater al HYSTERECTOMY 08/18/1998 - 08/17/1999 Medical History Medical History Date Comments Back pain Arthritis Constipation Sleep apnea Wears glasses Anxiety Family History Medical History Relation Name Comments Cancer Brother Pancreatic cancer Brother Diabetes Father Epilepsy Father Diabetes Maternal Grandmother Heart disease Mother No Known Problems Sister Relation Name Status Comments Brother Alive Father Maternal Grandmother Mother Alive Sister Alive Social History Tobacco Use Types Packs/Day Years Used Date Smoking Tobacco: Every Day Cigarettes Tobacco Cessation:Ready to Q uit: Not Asked; Counseling Given: Not Answered Personal Safety Answer Date Recorded Getting School Help Needed Not on file 07/30 Comments Unknown Sex and Gender Information Value Date Recorded Sex Assigned at Not on file Legal Sex Female 8:25 PM MANAGER LAW Gender Identity Not on file Sexual Orientation Not on file Obstetrics History Last Filed Vital Signs Vital Sign Reading Time Taken Comments Blood Pressure 156/92 08/12/2023 9:05 AM MANAGER LAW Pulse 90 08/12/2023 9:05 AM MANAGER LAW Temperature 36.2 C (97.2 F) 08/12/2023 9:05 AM MANAGER LAW Respiratory Rate - - Oxygen Saturation 97% 10/29/2016 3:30 PM CDT Inhaled Oxygen Concentration - - Weight 67.2 kg (148 lb 3.2 oz) 08/12/2023 9:05 A M MANAGER LAW Height 166.4 cm (5' 5.5) 08/12/2023 9:05 AM MANAGER LAW Body Mass Index 24.29 08/12/2023 9:05 AM MANAGER LAW Plan of Treatment Health Maintenance Due Date Last Done Comments Breast Cancer Screening-Mammogram 1964 Colon Cancer Screening-Colonoscopy 1964 Depression Screening 1964 Hepatitis C Screening 1964 DTaP/Tdap/Td Vaccine (1 - Tdap) 01/23/1975 Hepatitis B Screening 01/23/1982 Regular Well Visit/Exam 18-64 01/23/1982 Pneumococcal vaccine <65 (1 of 2 - PCV) 01/23/1983 Zoster Vaccine (1 of 2) 01/23/2014 Covid-19 Vaccine (2 - season) 04/18/202501/2021 Influenza Vaccine (#1) 2025 Insurance [employer] Care Teams Pediatric Associate Relationship Specialty Start Date End Date Sandra Nayak MD [address] [place] [address] [address] [place] [address] PCP - General Family Medicine 08/12/23 Earle Montez MD [address] [facility] [phone] [place] [address] Surgeon Colon and Rectal Surgery 08/12/23
--- OUTSIDE RECORDS SUMMARY | 2025-05-05 16:19 | XMS_ITS | Clinical Summary ---
Author Organization [facility] Address [address] [place] [address] Care Team Providers Care Production Line Assembler Name Role Phone Sandra Nayak MD Primary Care Provider [phone] Source Comments [facility],non-owned Affiliates and Associated Physician Practices is amultiple site organization consisting of ambulatory clinics and hospital sitesin [place], [place], [place] and [place]. This disclosure is being madepursuant to the Care Everywhere program and may not contain all information available regarding this patient. Last updated 18.[facility] Allergies Active Allergy Reactions Criticality Noted Date Comments Contrast-Iodinated Agents For Ct/Other Rash Medium 07/31/2016 Medications * Be aware that medications may not be up to date on this document. Alwaysverify current medications with the patient. vitamin D, ergocalciferol, (DRISDOL) 40920 UNITS capsule Take 50,000 Units by mouth every 7 days Active calcium citrate (CITRACAL 950) 950 MG tablet Take 1,200 mg by mouth once daily Active linaclotide (LINZESS) 290 MCG capsule Take 290 mcg by mouth daily before breakfast Take on an empty stomach at least 30 minutes prior to first meal of the day. Active Active Problems No known active problems Family History Medical History Relation Name Comments Hypertension Brother Diabetes Maternal Grandmother insulin dependent Lupus Mother Relation Name Status Comments Brother Maternal Grandmother Mother Social History Tobacco Use Types Packs/Day Years Used Date Smoking Tobacco: Every Day Cigarettes 0.3 30 Tobacco Cessation:Ready to Q uit: Yes Alcohol Use Standard Drinks/Week Comments Yes 1 (1 standard drink = 0.6 oz pur e alcohol) monthly Comments No Sex and Gender Information Value Date Recorded Sex Assigned at Not on file Legal Sex Female 5:30 AM 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 CAPITAL 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 Gender Identity Not on file Sexual Orientation Not on file Last Filed Vital Signs Vital Sign Reading Time Taken Comments Blood Pressure 101/71 08/16/2016 10:40 AM VENTURE CAPITAL ANALYST Pulse 69 08/16/2016 10:40 AM VENTURE CAPITAL ANALYST Temperature 36.1 C (97 F) 08/16/2016 10:25 AM VENTURE CAPITAL ANALYST Respiratory Rate 16 08/16/2016 10:40 AM VENTURE CAPITAL ANALYST Oxygen Saturation 95% 08/16/2016 10:40 AM VENTURE CAPITAL ANALYST Inhaled Oxygen Concentration - - Weight 72.6 kg (160 lb) 08/16/2016 9:01 AM VENTURE CAPITAL ANALYST Height 165.1 cm (5' 5) 08/16/2016 9:01 AM VENTURE CAPITAL ANALYST Body Mass Index 26.63 08/16/2016 9:01 AM VENTURE CAPITAL ANALYST Plan of Treatment Health Maintenance Due Date Last Done Comments COLOGUARD (AGES 45-75) - COL ON CA SCREENING 1964 COLON MONITORING 1964 COLONOSCOPY - COLON CA SCREENING 1964 CT COLONOGRAPHY - COLON CA SCREENING 1964 Colorectal Cancer Screening 1964 FIT - COLON CA SCREENING 1964 FLEX SIG - COLON CA SCREENING 1964 LIPID TESTING 1964 HIV SCREENING 01/23/1979 HEPATITIS C SCREENING 01/19/1982 DTAP/TDAP/TD VACCINES (1 - Tdap) 01/23/1983 PNEUMOCOCCAL VACCINE 50+ (1 of 2 - PCV) 01/23/1983 MAMMOGRAM 06/01/2010 06/01/2008 ZOSTER VACCINE (1 of 2) 01/23/2014 DEPRESSION SCREENING 08/18/2024 COVID-19 VACCINE (1 - 2023-2 5 season) 2025 INFLUENZA VACCINE (#1) 2025 Respiratory Syncytial Virus (RSV) Vaccine Pt: or over 60 yrs (1 - 1-dose 75+ series) 01/23/2039 HEPATITIS B VACCINE Aged Out No longe r eligible based on patient's age to complete this topic HIB VACCINE Aged Out No longer eligi ble based on patient's age to complete this topic HPV VACCINE Aged Out No longer eligi ble based on patient's age to complete this topic MENINGOCOCCAL (Group B) VACC INE SHARED DECISION-MAKING Aged Out No longer eligibl e based on patient's age to complete this topic MENINGOCOCCAL GROUPS A/C/Y/W VACCINE Aged Out No longer eligible b ased on patient's age to complete this topic Procedures Procedure Name Priority Date/Time Associated Diagnosis Comments MAMMO SCREEN ZULEIKA IMPLANTS Routine 06/01/2008 8:14 AM CDT Other Screening Mammogram from Last 3 Months or Most Recently Relevant to Health Maintenance Results * MAMMO SCREEN ZULEIKA IMPLAN TS (06/01/2008 8:14 AM CDT) Anatomical Region Laterality Modality Breast Mammography 06/01/2008 1:08 PM CDT Narrative 06/01/2008 2:42 PM CDT DIGITAL MAMMOGRAM SCREENING BILATERAL WITH IMPLANTS WITH CAD CORRELATION DATE: 06/01/2008 PREVIOUS EXAM DATE: 03/10/2007 PERTINENT HISTORY: Breast augmentations bilaterally. TECHNIQUE: Bilateral craniocaudad (CC), mediolateral oblique (MLO) and Romulo views. These images were interpreted with the aid of the R2 CAD. TECHNOLOGIST: RT KLEBER. TISSUE DENSITY: Average. FINDINGS: No discrete abnormality. No significant new finding. The prostheses appear to be intact. ASSESSMENT: Negative mammogram, BIRADS 1. RECOMMENDATIONS: Routine followup in one year. The above findings should be correlated with physical examination. A relatively nonspecific study should not preclude additional evaluation if suspicious findings are present clinically. An [employer] Certified Facility. Procedure Note Junior Zamorano / Rohan Alva (Clerical Edit - 06/01/2008 DIGITAL MAMMOGRAM SCREENING BILATERAL WITH IMPLANTS WITH CAD CORRELATION DATE: 06/01/2008 PREVIOUS EXAM DATE: 03/10/2007 PERTINENT HISTORY: Breast augmentations bilaterally. TECHNIQUE: Bilateral craniocaudad (CC), mediolateral oblique (MLO) and Romulo views. These images were interpreted with the aid of the R2 CAD. TECHNOLOGIST: RT KLEBER. TISSUE DENSITY: Average. FINDINGS: No discrete abnormality. No significant new finding. The prostheses appear to be intact. ASSESSMENT: Negative mammogram, BIRADS 1. RECOMMENDATIONS: Routine followup in one year. The above findings should be correlated with physical examination. A relatively nonspecific study should not preclude additional evaluation if suspicious findings are present clinically. An [employer] Certified Facility. Mulugeta Ma MD MAMMO ORDERABLES Edited Result - Final from Last 3 Months or Most Recently Relevant to Health Maintenance Insurance [employer] Care Teams Production Line Assembler Relationship Specialty Start Date End Date Sandra Nayak MD [address] [place] [address] KATHERIN Grijalva [phone] PCP - General Family Medicine 08/16/16
--- OUTSIDE RECORDS SUMMARY | 2025-05-05 16:19 | XMS_ITS | Encounter Summary ---
Author Organization [facility] Address [address] [place] [address] Care Team Providers Care Account Manager Forest Service Name Role Phone Emiliano Kelley MD Primary Care Provider José Luis villegas Encounter Details Date Type Department Care Team (Latest Contact Info) Description 06/23/2018 Abstract [facility] , Pedro Pablo Gutierrez MD Social History Tobacco Use Types Packs/Day Years [...] on filedocumented in this encounter Care Teams Account Manager Forest Service Relationship Specialty Start Date End Date Emiliano Kelley MD PCP - General 12/27/13 documented as of this encounter
[2025-05-05 17:38] LABS: CRP < 0.5 mg/dL (<1.0)
[2025-05-05 18:10] LABS: Ferritin 105.00 ng/mL (11.1-264)
[2025-05-07 12:08] LABS: Anti-CCP Ab, IgG/IgA 8 units (0-19)
[2025-05-10 08:08] LABS: ANA by IFA Rfx Titer/Pattern Negative (.)
== END 2025-05-05 16:16 | disposition home or self-care (01) ==
LOC: ANHLAB 16:17
PROVIDERS: PCP Family Medicine
DX: R79.89 Other specified abnormal findings of blood chemistry (principal); M19.90 Unspecified osteoarthritis, unspecified site; M81.0 Age-related osteoporosis without current pathological fracture
CPT/HCPCS: 36415; 82728; 85652; 86038; 86140; 86200; 86430

== ENCOUNTER 2025-08-15 15:00 | Emergency (ER) | payer BC, SELFPAY ==
[2025-08-15 15:02] VITALS: BP 134/67; PULSE 76; RESP 18; TEMP 36.3; O2SAT 100
--- OUTSIDE RECORDS SUMMARY | 2025-08-15 15:11 | XMS_ITS | Encounter Summary ---
Author Organization [facility] Address [address] [place] [address] Care Team Providers Care Varnisher Name Role Phone Emiliano Kelley MD Primary Care Provider José Luis villegas Encounter Details Date Type Department Care Team (Latest Contact Info) Description 06/23/2018 Abstract [facility] , Pedro Pablo Gutierrez MD [...] on filedocumented in this encounter Care Teams Varnisher Relationship Specialty Start Date End Date Emiliano Kelley MD PCP - General 12/27/13 documented as of this encounter
--- OUTSIDE RECORDS SUMMARY | 2025-08-15 15:11 | XMS_ITS | Clinical Summary ---
Author Organization [facility] Address [address] [place] [address] Care Team Providers Care Vice President Of Software Engineering Name Role Phone Emiliano Kelley MD Primary [...] Vaccines (1 of 2) 01/23/2014 COVID-19 Vaccine (2024-2 6 season) 2025 Influenza Adult (#1) 2025 RSV Immunization or 60+ Years (1 - 1-dose 75+ series) 01/23/2039 Hepatitis A Vaccines Aged Out No long er eligible based on patient's age to complete this topic Meningococcal B Vaccine Aged Out No l onger eligible based on patient's age to complete this topic Meningococcal Vaccine Aged Out No christina rubén eligible based on patient's age to complete this topic RSV Immunizations Under 20 Months Aged Out No longer eligible based on patient's age to complete this topic Care Teams Vice President Of Software Engineering Relationship Specialty Start Date End Date Emiliano Kelley MD PCP - General 12/27/13
--- OUTSIDE RECORDS SUMMARY | 2025-08-15 15:12 | XMS_ITS | Clinical Summary ---
Author Organization [facility] Address [address] [facility] [place] [address] Care Team Providers Care Unix Administrator Name Role Phone Earle Montez MD Unavailable Sandra Nayak MD Primary Care Provider + [...] (09/26/2022): Added automatically from request for surgery [id number] Surgical History Surgery Date Site/Laterality Comments AUGMENTATION [...] on file Legal Sex Female 8:25 PM PIPED POCKET MACHINE OPERATOR Gender Identity Not on file Sexual Orientation Not on file Last Filed Vital Signs Vital Sign Reading Time Taken Comments Blood Pressure 156/92 08/12/2023 9:05 AM PIPED POCKET MACHINE OPERATOR Pulse 90 08/12/2023 9:05 AM PIPED POCKET MACHINE OPERATOR Temperature 36.2 C (97.2 F) 08/12/2023 9:05 AM PIPED POCKET MACHINE OPERATOR Respiratory Rate - - Oxygen Saturation 97% 10/29/2016 3:30 PM CDT Inhaled Oxygen Concentration - - Weight 67.2 kg (148 lb 3.2 oz) 08/12/2023 9:05 A M PIPED POCKET MACHINE OPERATOR Height 166.4 cm (5' 5.5) 08/12/2023 9:05 AM PIPED POCKET MACHINE OPERATOR Body Mass Index 24.29 08/12/2023 9:05 AM PIPED POCKET MACHINE OPERATOR Plan of Treatment Health Maintenance Due Date [...] season) 04/18/202501/2021 Influenza Vaccine (#1) 2025 Insurance [employer] Care Teams Unix Administrator Relationship Specialty Start Date End Date Sandra Nayak MD [address] [place] [address] [address] SANDHU [address] [place] [id number] PCP - General Family Medicine 08/12/23 Earle Montez MD [address] [facility] [phone] [place] [address] Surgeon Colon and Rectal Surgery 08/12/23
--- OUTSIDE RECORDS SUMMARY | 2025-08-15 15:12 | XMS_ITS | Clinical Summary ---
Author Organization [facility] Address [address] [facility] [place] [address] Care Team Providers Care Supply Service Worker Name Role Phone Sandra Nayak MD Primary Care Provider [phone] Source Comments [facility],non-owned Affiliates and Associated Physician Practices is amultiple site organization consisting of ambulatory clinics and hospital sitesin [place], [place] and [place]. This disclosure is being madepursuant to the Care Everywhere program and may not contain all information available regarding this patient. Last updated 18.[facility] Allergies Active Allergy Reactions Criticality Noted Date Comments Contrast-Iodinated Agents For Ct/Other Rash Medium 07/31/2016 Medications * Be aware that medications may not be up to date on this document. Alwaysverify current medications with the patient. 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 Gender Identity Not on file Sexual Orientation Not on file Last Filed Vital Signs Vital Sign Reading Time Taken Comments Blood Pressure 101/71 08/16/2016 10:40 AM BUS DRIVER SCHOOL Pulse 69 08/16/2016 10:40 AM BUS DRIVER SCHOOL Temperature 36.1 C (97 F) 08/16/2016 10:25 AM BUS DRIVER SCHOOL Respiratory Rate 16 08/16/2016 10:40 AM BUS DRIVER SCHOOL Oxygen Saturation 95% 08/16/2016 10:40 AM BUS DRIVER SCHOOL Inhaled Oxygen Concentration - - Weight 72.6 kg (160 lb) 08/16/2016 9:01 AM BUS DRIVER SCHOOL Height 165.1 cm (5' 5) 08/16/2016 9:01 AM BUS DRIVER SCHOOL Body Mass Index 26.63 08/16/2016 9:01 AM BUS DRIVER SCHOOL Plan of Treatment Health Maintenance Due Date [...] DEPRESSION SCREENING 08/18/2024 COVID-19 VACCINE (1 - 2024-2 6 season) 2025 INFLUENZA VACCINE (#1) 2025 Respiratory [...] if suspicious findings are present clinically. An [employer] Certified Facility. Procedure Note [...] if suspicious findings are present clinically. An [employer] Certified Facility. Mulugeta Ma MD MAMMO ORDERABLES Edited Result - Final from Last 3 Months or Most Recently Relevant to Health Maintenance Insurance [email or web address] [facility] Address: [facility] [id number] [place] [id number] Care Teams Supply Service Worker Relationship Specialty Start Date End Date Sandra Nayak MD [address] [place] [address] KATHERIN Grijalva [phone] PCP - General Family Medicine 08/16/16
--- OUTSIDE RECORDS SUMMARY | 2025-08-15 15:12 | XMS_ITS | Encounter Summary ---
Author Organization [facility] Care Team Providers Care Tool Crib Lead Name Role Phone Selene Cerrato NP Primary Care Provider [phone] Earle Montez MD Unavailable [phone] Sandra Nayak MD Primary Care Provider + Encounter Details Date Type Department Care Team (Latest Contact Info) Description 08/16/2016 Orders Only [facility] ProviderCheko MD [address] [place] [id number] Social History Tobacco Use Types Packs/Day Years Used Date Smoking Tobacco: Never Assessed Comments Unknown Sex and Gender Information Value Date Recorded Sex Assigned at Not on file Legal Sex Female 8:25 PM LOOP TACKER Gender Identity Not on file Sexual Orientation Not on file documented as of this encounter Plan of Treatment Not on file documented as of this encounter Procedures Procedure Name Priority Date/Time Associated Diagnosis Comments PROCEDURE - RESULT 08/16/2016 12 :00 AM LOOP TACKER documented in this encounter Results * PROCEDURE - RESULT (08/16/2016 12:00 AM LOOP TACKER) Narrative 08/16/2016 12:00 AM LOOP TACKER Ordered by an unspecified provider. Historical Provider Final Res ult documented in this encounter Visit Diagnoses Not on filedocumented in this encounter Care Teams Tool Crib Lead Relationship Specialty Start Date End Date Selene Cerrato NP PCP - General Internal Medicine 09/03/22 08/11/23 Sandra Nayak MD [address] [place] [id number] PCP - General Family Medicine 08/12/23 Earle Montez MD [address] [facility] [phone] [place] [address] Surgeon Colon and Rectal Surgery 08/12/23 documented as of this encounter
--- OUTSIDE RECORDS SUMMARY | 2025-08-15 15:12 | XMS_ITS | Data Portability ---
Author Organization [place] - [place] [employer], Main Office Address [address] [place] [address] Care Team Providers Care Pbx Operator Name Role Phone FRED LANE Primary Care Provider Assessment No assessment recorded. Plan of Treatment Reminders Order Date Submit Date Provider Last Modified By Organization Details Last Modified Time Details Appointments None recorded. Lab vitamin D3, 25-hydroxy, serum 2023 024 [email or web address] Not available 4 17:07:41 BMP, serum or plasma 2023 024 [email or web address] Not available 4 17:06:54 lipid panel, serum 2023 024 [place] [id number] Not available 4 17:07:[address] referral - Please call patient to schedule an appointment . Thank you. 2023 024 [email or web address] [facility], [address], [place], [address], 4 08:35:23 Procedures bertha maneuver (PROC) 2023 024 [facility] [place] [facility], [address], [place], [address], 4 09:09:05 Surgeries None recorded. Imaging LDCT, chest, for lung cancer screening - *Please call pt to schedule* 2023 024 [facility], [address], [place], [address], 4 15:22:37 Medication Orders Medrol (Donaldo) 4 mg tablets in a dose pack [address] [id number], [address], [place], [place], [id number], 4 17:15:51 cefdinir 300 mg capsule [address] [facility]94327, [address], [place], [place], [id number], 4 17:15:47 Zithromax Z-Donaldo 250 mg tablet 2023 024 [facility] #74500, [address], [place], [place], [id number], 4 09:55:21 meclizine 25 mg tablet 2023 024 [facility] #28922, [address], [place], [place], [id number], 4 10:19:23 alendronate 70 mg tablet 2023 024 [facility] #30446, [address], [place], [place], [id number], 4 17:37:51 Patient TargetsNo targets recorded. Patient Instructions Encounter Date Encounter Id Patient Instructions Last Modified By Organization Details Last Modified Time 01/16/2024 [id number] bertha maneuver a t home for vertigo: exercises [email or web address] Not available 01/16/2024 15:26:48 Reason for Referral [employer] Operator Referral for S kin lesion skin lesion to left upper back Please call patient to schedule an appointment. Thank you. Referring Physician: Fred Lane, Family Medicine, Encounter Date: 01/16/2024 Results Created Date Observation Date Name Description Value Unit Range Abnormal Flag Note LastModifiedBy Organization Detail LastModifiedTime 09/15/19 24 09/15/2023 BASIC METAB OLIC PANEL sodium 140 mmol/ L 137-14 5 Not Available [facility] (Lab) [address] [place], [address], 09/15/2023 19:33:38 09/15/19 24 09/15/2023 BASIC METAB OLIC PANEL potassium 3.6 mmol/ L 3.5-5. 1 Not Available [facility] (Lab) [address] [place], [address], 09/15/2023 19:33:38 09/15/19 24 09/15/2023 BASIC METAB OLIC PANEL chloride 108 mmol/ L 98-107 high Not Available [facility] (Lab) [address] [place], [address], 09/15/2023 19:33:38 09/15/19 24 09/15/2023 BASIC METAB OLIC PANEL carbon dioxide 26 mmol/ L 22-30 Not Available [facility] (Lab) [address] [place], [address], 09/15/2023 19:33:38 09/15/19 24 09/15/2023 BASIC METAB OLIC PANEL anion gap 9.6 mmol/ L 14-22 low Not Available [facility] (Lab) [address] [place], [address], 09/15/2023 19:33:38 09/15/19 24 09/15/2023 BASIC METAB OLIC PANEL glucose 108 mg/dL 70-99 high Not Available [facility] (Lab) [address] [place], [address], 09/15/2023 19:33:38 09/15/19 24 09/15/2023 BASIC METAB OLIC PANEL BUN 13 mg/dL 8-19 Not Available [facility] (Lab) [address] [place], [address], 09/15/2023 19:33:38 09/15/19 24 09/15/2023 BASIC METAB OLIC PANEL creatinine 0.76 mg/dL 0.66-1 .25 Not Available [facility] (Lab) [address] [place], [address], 09/15/2023 19:33:38 09/15/19 24 09/15/2023 BASIC METAB OLIC PANEL GFR >60 Refer ence Range : [place] [facility] GFR Healt hy Adult : >60 mL/mi n/1.7 3 m2 Chron ic Kidne y Disea se: 15-60 mL/mi n/1.7 3 m2 Kidne y Failu re: <15/m L/min /1.73 m2 www.n iddk. nih.g ov The MDRD study equat ion has not been valid ated in child monie <18 years of age; pregn ant women ; the elder ly >85 years of age; or in some racia l or ethni c subgr oups, such as Hisil nics. Outsi de the valid ated harry eters , estim ated GFR is less accur ate, requi ring clini porter judgm ent on a case- by-ca se basis . Clini porter inter preta tion for other races and ages must be made by the clini loi. The MDRD study equat ion has not been valid ated for the evalu ation of serum creat inine relat ed to nutri chica l statu s or medic ation usage . For perso ns <18 years of age, a pedia tric GFR calcu lator is avail able on the F websi te: https ://ww w.kid jaylan.o rg/pr ofess ional s/kdo qi/gf r_cal culat or Not Available [facility] (Lab) [address] [place], [address], 09/15/2023 19:33:38 09/15/19 24 09/15/2023 BASIC METAB OLIC PANEL calcium 9.2 mg/dL 8.4-10 .2 Not Available [facility] (Lab) [address] [place], [address], 09/15/2023 19:33:38 09/15/19 24 09/15/2023 LIPID PANEL cholesterol 203 mg/dL 140-19 9 high NIH DANNIE NSUS RECOM MENDA TION FOR RAYMOND STERO L: ADULT CHILD LOW RISK: <200 <170 BORDE RLINE : <200- 239 ----- HIGH RISK: >240 >200 Not Available [facility] (Lab) [address] [place], [address], 09/15/2023 19:33:43 09/15/19 24 09/15/2023 LIPID PANEL triglyceride s 191 mg/dL 0-150 high NIH DANNIE NSUS REPOR T RECOM MENDA TION FOR TRIGL YCERI HEIDY: ADULT CHILD LOW RISK: <150 ----- BODER LINE: 150-1 99 ----- HIGH RISK: >200 ----- Not Available [facility] (Lab) [address] [place], [address], 09/15/2023 19:33:43 09/15/19 24 09/15/2023 LIPID PANEL HDL cholesterol 46 mg/dL 40- Not Available [facility] (Lab) [address] [place], [address], 09/15/2023 19:33:43 09/15/19 24 09/15/2023 LIPID PANEL LDL cholesterol, calculated 119 mg/dL 0-130 NIH DANNIE NSUS REPOR T RECOM MENDA TIONS FOR LDL: ADULT CHILD LOW RISK <130 <110 (OPTI MAL LDL) <100 ----- BORDE RLINE : 130-1 59 ----- HIGH RISK: >160 >130 A TRIGL YCERI DE RESUL T >400 INVAL IDATE S THE CALCU LATIO N FOR LDL FRACT IONAT ION - THE LDL RESUL T WILL NOT BE REPOR DARINEL. Not Available [facility] (Lab) [address] [place], [address], 09/15/2023 19:33:43 09/15/19 24 09/15/2023 VITAM IN D 25-HY DROXY vd25oh 43.7 NG/mL 30-100 Vitam in D Statu s: Defic ient: <20 ng/mL Insuf ficie nt: 20-29 ng/mL Suffi cient : 30-10 0 ng/mL Not Available [facility] (Lab) [address] [place], [address], 09/15/2023 19:49:02 09/26/19 24 09/26/2023 MAMMO , scree michael, digit al, bilat eral No observ ation record ed. [address], [place], [address], 11/12/2023 15:57:59 09/30/19 24 09/26/2023 DEXA No observ ation record ed. [address] [facility] [address], [place], [address], 11/12/2023 15:58:02 09/30/19 24 09/26/2023 DEXA No observ ation record ed. [address] [facility] [address], [place], [address], 11/12/2023 15:57:58 10/06/19 24 10/06/2023 LDCT, chest , for lung cance r screwoody rodriguez No observ ation record ed. [address] [facility] [address], [place], [address], 11/12/2023 15:58:03 Result Notes None recorded. Problems Name Problem SNOMED Code Status Onset Date Resolution Date Notes Provider Name and Address Organization Details Recorded Time Edema of lower extremity 080474646 Active Not Available [facility] 3 10:46:47 Mammographic breast density 150611974 Active Not Available [facility] 3 10:46:47 Pain in throat 317224747 Active Not Available [facility] 3 10:46:47 Mammography abnormal 352512506 Active Not Available [facility] 3 10:46:47 Insomnia 398708374 Active Not Available [facility] 3 10:46:47 Gastroesopha geal reflux disease 325262313 Active Not Available [facility] 3 10:46:47 Dyspnea 754492095 Active Not Available [facility] 3 10:46:47 Vitamin D deficiency 33774146 Active Not Available [facility] 3 10:46:47 Dyspareunia 24561644 Active Not Available [facility] 3 10:46:47 Fatigue 06804188 Active Not Available [facility] 3 10:46:48 Caregiver role strain 546985203 Active 2019 Not Available [facility] 3 10:46:47 Dysuria 10113780 Active 2022 Cherie Gomez RN [facility] [place] [place] [employer] [facility] [employer] [facility] 3 15:03:37 Pain of multiple joints 02264111 Active 2022 PATTI Forbes [address], [address], [place], [address] , [employer] [facility] 3 14:37:48 Normal grief reaction 555403978 Active 2022 PATTI Forbes [address], [address], [place], [address] , [employer] [facility] [employer] [facility] 3 18:35:25 Pain of joint of ankle and/or foot 114663477 Active 2022 PATTI Forbes [address], [address], [place], [address] , [employer] [facility] [employer] [facility] 3 15:52:53 Nicotine dependence 18604550 Active 2023 Sandra Nayak MD [address], [address], [place], [address] , [facility] [employer] [facility] [employer] [facility] 4 16:44:08 Chronic constipation 444029619 Active 2023 Sandra Nayak MD [address], [address], [place], [address] , [place] [facility] 4 16:55:14 Postviral cough 504989303 Active 2023 Sandra Nayak MD [address], [address], [place], [address] , [place] [facility] 4 16:58:24 Osteoporosis 56573258 Active 2023 Sandra Nayak MD [address], [address], [place], [address] , [place] [facility] 4 15:58:21 Otalgia of right ear 6558175760 Active 2023 Sandra Nayak MD [address], [address], [place], [address] , [place] [facility] 4 11:18:59 Dizziness 820100283 Active 2023 PATTI Tello-Manuela [address], [address], [place], [address] , [place] [facility] 4 15:05:15 Pain of ear 095804109 Active 2023 PATTI Tello-C [address], [address], [place], [address] , [place] [facility] 4 15:06:35 Skin lesion 00472863 Active 2023 PATTI Tello-Manuela [address], [address], [place], [address] , [place] [facility] 4 15:12:53 Bilateral chronic serous otitis 326806876 Active 2023 Asaf Iqbal MD [address], [address], [place], [address] , [place] [facility] 4 14:35:24 Vertigo 943430269 Active 2023 BRIANNA Boss, [employer] 4 10:29:11 Benign paroxysmal positional vertigo 415331520 Active 2023 PATTI Fan [address], [address] [place] [address] , [employer] 4 10:32:57 Benign paroxysmal positional vertigo 709383550 Active 2023 PATTI Fan [address], [address] [place] [address] , [employer] 4 10:33:27 Problem Notes None recorded. Procedures Surgical History Date Name Laterality Status Provider Name and Address Organization Details Recorded Time 09/26/19 24 Most Recent Mammogram completed Maci Narvaez LPN [employer] [facility] [employer] 09/26/2023 16:13:58 06/23/20 23 colonoscopy completed Sandra Nayak MD [address], [address] [place] [address], [employer] 09/15/2023 16:59:11 Hysterectomy completed Not Available [employer] [facility] 10/16/2022 10:42:54 operation on esophagus completed BRIANNA Boss [employer] [facility] [employer] 03/24/2024 09:52:27 Imaging Results None recorded. Procedure Notes None recorded. Medical Equipment None Reported. Allergies Allergen ID Allergen Name Allergen Category Reaction Reaction Severity Criticality Documentation Date Start Date Code Code System Note Provider Name and Address Organization Details Recorded Time 05033 Iodinated contrast media (substanc e) medicatio n Not available Not available Not available 03/24/2024 96873 2004 SNOMED Pt state s she is aller gic to CT/ MRI contr ast/ dyes. BRIANNA Boss [employer] [facility] [employer] 4 10:00:25 Medications Name Sig Start Date Stop Date Status Note LastModified by Organization Details LastModified Time celecoxib 200 mg capsule TAKE 1 CAPSULE BY MOUTH EVERY DAY NEEDED active Not Available Not Available No t Available buspirone 5 mg tablet Take 1 tablet twice a day by oral route for 30 days. active Not Available Not Available No t Available trazodone 50 mg tablet TAKE 1 TABLET BY MOUTH EVERY DAY AT BEDTIME prn active Not Available Not Available No t Available azithromy jim 250 mg tablet TAKE 2 TABLETS (500 MG) BY ORAL ROUTE ONCE DAILY FOR 1 DAY THEN 1 TABLET (250 MG) BY ORAL ROUTE ONCE DAILY FOR 4 DAYS 03/24 completed Not Available Not Available Not Available fluconazo le 150 mg tablet 09/15 completed Not Available Not Available Not Available prednison e 20 mg tablet Take 2 tablets every day by oral route for 7 days. 03/12 completed Not Available Not Available Not Available alendrona te 70 mg tablet TAKE 1 TABLET BY MOUTH EVERY WEEK active Not Available Not Available No t Available penicilli n V potassium 500 mg tablet Take 1 tablet every 8 hours by oral route for 7 days. active Not Available Not Available No t Available bimatopro st 0.03 % eye drops APPLY 1 DROP TO APPLICAT OR AND APPLY TO UPPER EYELID, AND ALONG EYELASHE S EVERY NIGHT AT BEDTIME 01/01 completed Not Available Not Available Not Available ciproflox acin 250 mg tablet TAKE 1 TABLET TWICE A DAY FOR 5 DAYS 07/01 completed Not Available Not Available Not Available tramadol 50 mg tablet TAKE 1 TABLET 3 TIMES A DAY NEEDED FOR HEADACHE . MUST MAKE APPT FOR FURTHER REFILLS 07/01 completed Not Available Not Available Not Available oxycodone -acetamin ophen 5 mg-325 mg tablet TK 1 TO 2 TS PO Q 4 TO 6 H PRN P 01/01 completed Not Available Not Available Not Available amoxicill in 875 mg tablet TAKE 1 TABLET BY MOUTH EVERY 12 HOURS FOR 7 DAYS 03/24 completed Not Available Not Available Not Available amitripty line 25 mg tablet Take 1 tablet every day by oral route at bedtime for 30 days. active Not Available Not Available No t Available prednisol one acetate 1 % eye drops,teodora pension INSTILL 1 DROP INTO THE LEFT EYE EVERY 2 HOURS WHILE AWAKE FOR 2 DAYS. THEN USE FOUR TIMES DAILY WITH SLOW TAPER OFF OVER THE 7 TO 10 DAYS. 09/15 completed Not Available Not Available Not Available lorazepam 0.5 mg tablet TAKE 1 TABLET BY MOUTH TWICE DAILY NEEDED 09/15 completed Not Available Not Available Not Available trazodone 100 mg tablet TAKE 1 TABLET BY MOUTH EVERY DAY AT BEDTIME active Not Available Not Available No t Available dicyclomi ne 20 mg tablet TAKE 1 TABLET THREE TIMES A DAY NEEDED FOR ABDOMINA L CRAMPS 07/01 completed Not Available Not Available Not Available meclizine 25 mg tablet TAKE 1 TABLET BY MOUTH THREE TIMES DAILY NEEDED active Pt reports she has stopped taking meclizin e due to worsenin g HAs since taking it- FT 4. Not Available Not Available Not Available pantopraz ole 40 mg tablet,de layed release TK 1 T PO QD 02/13 completed Not Available Not Available Not Available erythromy jim 5 mg/gram (0.5 %) eye ointment 01/01 completed Not Available Not Available Not Available cyanocoba myra (vit B-12) 1,000 mcg/mL injection solution Inject 1 mL every month by intramus cular route. 01/01 completed [phone] Not Available Not Available Not Available buspirone 10 mg tablet TAKE 1 TABLET BY MOUTH TWICE DAILY 09/11 completed Not Available Not Available Not Available omeprazol e 20 mg capsule,d elayed release TAKE 1 CAPSULE BY MOUTH EVERY DAY 01/01 completed Not Available Not Available Not Available hydrochlo rothiazid e 25 mg tablet TK 1 T PO QD 01/01 completed Not Available Not Available Not Available diclofena c sodium 50 mg tablet,de layed release TAKE 1 TABLET BY MOUTH TWICE DAILY NEEDED 09/15 completed Not Available Not Available Not Available furosemid e 20 mg tablet TAKE 1 TABLET BY MOUTH EVERY DAY NEEDED active Not Available Not Available No t Available ergocalci ferol (vitamin D2) 1,250 mcg (50,000 unit) capsule TK 1 C PO Q WEEK 02/13 completed Not Available Not Available Not Available methylpre dnisolone 4 mg tablets in a dose pack FOLLOW PACKAGE DIRECTIO NS 04/15 completed Not Available Not Available Not Available albuterol sulfate HFA 90 mcg/actua tion aerosol inhaler INHALE 2 PUFFS BY MOUTH EVERY 4 TO 6 HOURS NEEDED active Not Available Not Available No t Available cefdinir 300 mg capsule TAKE 1 CAPSULE BY MOUTH EVERY 12 HOURS 04/15 completed Not Available Not Available Not Available naproxen 500 mg tablet TK 1 T PO BID PRN active Not Available Not Available No t Available neomycin 3.5 mg/g-poly myxin B 10,000 unit/g-de xameth 0.1 % eye oint APPLY A SMALL AMOUNT ON EYELID BID DIRECTED 01/01 completed Not Available Not Available Not Available Estrace 0.01% (0.1 mg/gram) vaginal cream Insert 1 g twice a week by vaginal route. 02/13 completed Not Available Not Available Not Available escitalop regan 10 mg tablet TAKE 1 TABLET BY MOUTH EVERY DAY active Not Available Not Available No t Available escitalop regan 20 mg tablet TAKE 1 TABLET BY MOUTH EVERY DAY 09/15 completed Not Available Not Available Not Available bupropion HCl XL 300 mg 24 hr tablet, extended release Take 1 tablet every day by oral route for 90 days. 01/01 completed Not Available Not Available Not Available bupropion HCl XL 150 mg 24 hr tablet, extended release Take 1 tablet every day by oral route for 30 days. active Not Available Not Available No t Available nitrofura ntoin monohydra te/macroc rystals 100 mg capsule TAKE 1 CAPSULE BY MOUTH EVERY 12 HOURS FOR 7 DAYS 09/15 completed Not Available Not Available Not Available Symbicort 80 mcg-4.5 mcg/actua tion HFA aerosol inhaler INL 2 PFS PO BID 01/01 completed Not Available Not Available Not Available Latisse 0.03 % eyelash drops APPLY 1 DROP TO APPLICAT OR AND APPLY TO UPPER EYELID, ALONG EYELASHE S, BY TOPICAL ROUTE ONCE DAILY AT NIGHTTIM E 01/01 completed Not Available Not Available Not Available ProAir RespiClic k 90 mcg/actua tion breath activated INL 1 PUFF PO Q 4 H PRN 01/01 completed Not Available Not Available Not Available Vitals Date Recorded Body height Body mass index (BMI) Body weight Body temperature Heart rate Oxygen saturation Systolic And Diastolic Provider Name and Address Organization Details Last Updated DateTime 4 165.1 cm 24.5 kg/m2 82828.0 8 g 98 [degF] 80 /min 98 % 122/78 mm[Hg] Gorge Nicole RN [place] [employer] 4 16:26:45 Date Recorded Body height Body mass index (BMI) Body weight Body temperature Oxygen saturation Heart rate Systolic And Diastolic Provider Name and Address Organization Details Last Updated DateTime 4 165.1 cm 23.6 kg/m2 13849.1 2 g 97.6 [degF] 97 % 78 /min 116/72 mm[Hg] Gorge Nicole RN [facility] [employer] [facility] 4 15:51:37 Date Recorded Body height Body mass index (BMI) Body weight Body temperature Heart rate Oxygen saturation Systolic And Diastolic Provider Name and Address Organization Details Last Updated DateTime 4 165.1 cm 24.3 kg/m2 19162.4 9 g 99.3 [degF] 76 /min 96 % 118/78 mm[Hg] Olga Carl RN [facility] [employer] [facility] 4 14:55:03 Date Recorded Body height Body mass index (BMI) Body weight Body temperature Provider Name and Address Organization Details Last Updated DateTime 03/25/2024 165.1 cm 24.4 kg/m2 49056.92 g 98.3 [degF] Anum Montoya [facility] [employer] [facility] 03/25/2024 14:08:07 Date Recorded Body height Body mass index (BMI) Body weight Body temperature Provider Name and Address Organization Details Last Updated DateTime 04/20/2024 165.1 cm 24.2 kg/m2 68968.05 g 98.2 [degF] Anum Montoya [facility] [employer] [facility] 04/20/2024 10:18:24 Social History Question Answer Notes LastModified by Organizat ion Details LastModified Time Tobacco Smoking Status Current Some Day Smoker Olga Carl RN [facility] [employer] [facility] 01/16/2024 14:53:30 What Is Your Level Of Caffeine Consumption? Moderate [id number] Information not available 10/16/2022 How Much Tobacco Do You Chew? None [id number] Information not available 10/16/2022 What Type Of Diet Are You Following? REGULAR [id number] Information not available 10/16/2022 Which Illicit Or Recreational Drugs Have You Used? No [id number] Information not available 10/16/2022 Are There Any Guns Present In Your Home? No [id number] Information not available 10/16/2022 What Was The Date Of Your Most Recent Tobacco Screening? 09/15/2023 [email or web address] Information not available 09/15/2023 How Much Tobacco Do You Smoke? 0.5 PPD [id number] Information not available 10/16/2022 How Many Years Have You Smoked Tobacco? 40 [id number] Information not available 10/16/2022 Sex: Unknown Functional Status Question Answer Note LastModified by Organizat ion Details LastModified Time What is your level of alcohol consumption? Occasional [id number] Information not available 10/16/2022 Do you or have you ever used smokeless tobacco? 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 Never used electronic cigarettes [id number] Information not available 10/16/2022 What is your exercise level? Occasional [id number] Information not available 10/16/2022 Mental Status None recorded. Family History Relationship Description Onset Age of this Age Resolved Age Notes LastModified by Organization Details LastModified Time Mother Heart disease [id number] Not available 10/16/2022 10:42:58 Brother Disorder of esophagus [email or web address] Not available 03/2024 14:01:28 Sister Disorder of esophagus Not available 03/2024 14:01:28 Medical History Condition Response ENT Y HEARTBURN / REFLUX Y SLEEP DISORDER Y Gynecological History Statement/Question Response Most Recent Mammogram 09/26/2023 Obstetrics History GPAL:G 0 P 0 0 0 0 Past Encounters Encounter ID Performer Location Encounter Start Date Encounter Closed Date Diagnosis/Indication Diagnosis SNOMED-CT Code Diagnosis ICD10 Code Diagnosis IMO Codes Diagnosis Note [id number] PATTI Forbes [facility] [address] [place] [address] 12/01/2020 00:00:00 12/01/2020 16:50:40 [id number] Mulugeta Deng MD [facility] [place] [address] [place] [address] 01/05/2021 00:00:00 01/05/2021 10:37:23 [id number] TINY Ladd [facility] Primary [facility] [place] rodr[place]z [address] [place] [address] [address] [place] [address] 05/07/2021 00:00:00 05/07/2021 08:54:00 [id number] PATTI Forbes [facility] Primary Care [place] [address] [facility] [address] [place] [address] 02/14/2022 00:00:00 02/14/2022 17:37:04 [id number] Sandra Nayak MD [facility] Primary Care [place] [address] [facility] [address] [place] [address] 09/11/2022 00:00:00 09/11/2022 16:55:58 [id number] PATTI Forbes [facility] Primary [place] rodriguez [address] [place] [address] [address] [place] [address] 12/27/2022 15:17:10 12/27/2022 15:42:21 [id number] PATTI Forbes [facility] Primary Care [place] rodriguez [address] [place] [address] [address] [place] [address] 03/12/2023 13:51:19 03/12/2023 14:53:06 Insomnia [id number] G47.00 Improved with trazodoneS leep hygiene (set bedtime, routine for bed, dark room, no electronic s). Discussed that it will likely take several weeks to fully establish routine and note change in sleep patterns. Advised good sleep habits and patterns to include:-- Setting a goal for at least 7 to 8 hours of sleep time per day.--Usin g the bed mainly for sleep and to go to bed only when tired. If unable to fall asleep after 30 minutes, patient should get out of bed but should not engage in any activity that requires sustained mental alertness. --Maintain ing a regular bedtime and wake-up time even on weekends or days off of work.--Joni iding excessive naps during the daytime. If a nap is necessary, limit it to no more than 30minutes. --Minimizi ng environmen pablo noise, bright lights, and extremes in bedroom temperatur e.--Avoidi ng alcohol, caffeinate d beverages, and nicotine products for at least 6 hours prior to bedtime.-- Avoiding strenuous exercise and large meals for at least 4 hours prior to bedtim Pain of mu ltiple joints [id number] M25.50 RecurrentS tableOk to use topical analgesics . ROM exercises and moist heat PRN. Take NSAID per package instructio ns. Keep joints warm. Normal grief reaction 27 [id number] F43.20 StableNo additional tx indicated at this time. [id number] Sandra Nayak MD [facility] Primary Care [facility] [address] [facility] [address] [place] [address] 05/16/2023 15:25:15 06/02/2023 16:07:13 Pain of joint of ankle and/or foot [id number] M25.579 new problemHas taken diclofenac 50 mg for a few years for hip and knee pain. Started a new walking regime and has had flare ups of ankle and foot pain. Has likely tendonitis superimpos ed on osteoarthr itis to the right foot.Recom mend supportive shoes and switching out often for good support.Do not go barefoot.T raad OTC ibuprofen 200-400 mg every 4 hours as needed for pain.Will change diclofenac to celebrex for arthritic pain. [id number] Sandra Nayak MD [facility] Primary Care [address] [place] [address] 09/15/2023 16:20:27 09/15/2023 17:10:30 Adult health examination [id number] Z00.00 Z13.220 Z13.1 colonoscop y 06/23/23 repeat 5 years polyphas mammogram and DEXA set up ein Februaryno pap needed, s/p hysterecto mywork on smoking cessationL DCT ordered for lung cancer screenchec k fasting labsRecomm end yearly flu vaccineRec ommend covid boosterRec ommend pneumonia vaccinesRe commend shingles vaccine Vitamin D deficiency 347 04136 E55.9 Nicotine dependence 5629 4008 F17.200 smoked 1 ppd from age [age], now smoking 1/2 ppd since age 58LDCT orderedwor k on smoking cessation Chronic constipation [address] Montez colorectal for prolapsing hemorrhoid swill observe for now, taking daily fiber and align Postviral cough 74677851 4 B94.8 improving per pt reportexam normal todayok to observewor k on smoking cessationL DCT ordered for lung cancer screen [id number] Sandra Nayak MD [facility] Primary Care [address] [place] [address] 11/12/2023 15:45:45 11/12/2023 16:16:18 Osteoporosis 99008011 M81.0 reviewed DEXArecomm end daily walkingbeg in alendronat e 70 mg weekly-rev iewed potential med s/ept instructed not to recline for 60 minutes after taking and to d/c and be seen if she develops jaw or ankle painrepeat DEXA in [id number], PATTI-Manuela [facility] Primary Care [address] [place] [address] 01/16/2024 14:45:18 01/16/2024 15:38:21 Dizziness [id number] R42 -noting symptoms of vertigo-pt dizzy even upon sitting up, has fallen back and hit her head-multi ple falls noted, has cracked a tooth-cont inued symptoms for the last 3 months-80- 120 oz of water/day- bertha maneuver handout given-refe rral to ENT given-tria l meclizine Pain of ear 721517435 H9 2.09 -itchy/bur michael to left ear-notes pressure/f eeling of congestion -on exam it is hard to determine if she has a hole in ear drum or if there is possible scar tissue-she was given abx with mild improvemen t, completed- juan luisck given Skin lesion 36584112 L98 .9 -lesion noted to upper left back-appea rs to have an open center with a darkened base [id number] Asaf Iqbal MD [facility] [place] [address] [place] [address] 03/25/2024 13:59:00 03/26/2024 09:59:12 Bilateral chronic serous otitis [id number] H65.23 [id number] Asaf Iqbal MD [facility] [place] [address] [place] [address] 04/20/2024 10:13:20 04/20/2024 10:34:12 Benign paroxysmal positional vertigo 466577136 H81.10 Health Concerns Section Related Observation LastModified by Organization Detai ls LastModified Time None Recorded Concern Status LastModified by Organization Details LastModified Time None Recorded Advance Directives Directive None Recorded Payers Insurance Date Sequence Insurance Name Policy Number Policy Cortes Covered Member ID Cortes Member ID Guarantor Name 04/20/2024 1 [place] [id number] 5 Brianne Mumper [id number] SM Brianne L Mumper 03/25/2024 1 [place] [id number] 5 Brianne Mumper [id number] SM Brianne L Mumper Notes Date Note Type Note Provider Name and Address Organization Details Recorded Time 09/15/2023 text/html ROS as noted in the HPI Here for wellness exam. Has long h/o chronic constipation. Recently had colonoscopy and sent to colorectal surgeon for prolapse. Colorectal surgeon recommended fiber, she is noticing some improvement. No chest pain or sob. She has dry cough since covid at [place], getting better. Sandra Nayak MD [address] [employer], [place], [address], [employer] 09/15/2023 16:59:18 11/12/2023 text/html ROS as noted in the HPI here to f/u on DEXA, feeling well, she stays active. Sandra Nayak MD [address], [place], [address], [facility] [employer] 11/14/2023 08:33:33 01/16/2024 text/html pt is here for dizziness/ear pain MIKE Tello [address] [facility] [address], [place], [address], [facility] [employer] [facility] 01/16/2024 15:28:07 03/25/2024 text/html this patient developed hearing loss after a cold in October. She has been trying the Valsalva maneuver. She developed vertigo and was placed on meclizine. Asaf Iqbal MD [address], [facility] [address], [place], [address], [employer] [facility] [employer] [facility] 03/25/2024 14:36:14 04/20/2024 text/html This patient presents to the office with a past medical history significant for vertigo, GERD, and insomnia. She presents for a one-month follow-up for vertigo symptoms. she was seen by Dr. Iqbal and was diagnosed with bilateral serous otitis media and prescribed Medrol and cefdinir for management. She reports completing those medications without any adverse effects. She reports taking meclizine to help with the vertigo but has since stopped due to headache side effects. She reports dizziness is worse with lying down, bending over to pick things up, and rotating her head eizc-uk-ptra. PATTI Fan [address], [facility] [address], [place], [address], [employer] [facility] [employer] [facility] 04/20/2024 10:33:33 OBGyn Episode No OBEpisode recorded.
--- OUTSIDE RECORDS SUMMARY | 2025-08-15 15:12 | XMS_ITS | Encounter Summary ---
Author Organization [facility] Facility Care Team Providers Care Intervention Analyst Name Role Phone Selene Cerrato NP Primary Care Provider [phone] Earle Montez MD Unavailable [phone] Sandra Nayak MD Primary Care Provider + Encounter Details Date Type Department Care Team (Latest Contact Info) Description 10/16/2016 Orders Only [facility] CLINCONV ProviderCheko MD [address] [place] [address] Social History Tobacco Use Types Packs/Day Years Used Date Smoking Tobacco: Never Assessed Comments Unknown Sex and Gender Information Value Date Recorded Sex Assigned at Not on file 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 Historical Provider [facility] [place] [place] Final Result documented in this encounter Visit Diagnoses Not on filedocumented in this encounter Care Teams Intervention Analyst Relationship Specialty Start Date End Date Selene Cerrato NP PCP - General Internal Medicine 09/03/22 08/11/23 Sandra Nayak MD [address] [place] [address] [address] PCP - General Family Medicine 08/12/23 Earle Montez MD [phone] [place] [address] Surgeon Colon and Rectal Surgery 08/12/23 documented as of this encounter
--- OUTSIDE RECORDS SUMMARY | 2025-08-15 15:12 | XMS_ITS | Encounter Summary ---
Author Organization [facility] Address [address] [place] [address] Phone Care Team Providers Care Neighborhood Planner Name Role Phone Selene Cerrato NP Primary Care Provider [phone] Earle Montez MD Unavailable [phone] Sandra Nayak MD Primary Care Provider + Encounter Details Date Type Department Care Team (Late st Contact Info) Description 10/25/2022 Telephone [facility] Medicine Surgery [address] [facility] [address] [place] [address] Lisa Ramsey BKarieAKarie Social History Tobacco Use Types Packs/Day Years Used Date Smoking Tobacco: Every Day Cigarettes Comments Unknown Sex and Gender Information Value Date Recorded Sex Assigned at Not on file 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
--- OUTSIDE RECORDS SUMMARY | 2025-08-15 17:09 | XMS_ITS | Encounter Summary ---
Author Organization [facility] Address [address] [place] [address] Phone Care Team Providers Care Reading Efficiency Course Director Name Role Phone Seleen Cerrato NP Primary Care Provider [phone] Earle Montez MD Unavailable [phone] Sandra Nayak MD Primary Care Provider + Encounter Details Date Type Department Care Team (Late st Contact Info) Description 10/25/2022 Telephone [facility] Medicine Surgery [address] [facility] [address] [place] [address] Lisa Ramsey BKarieAKarie Social History Tobacco Use Types Packs/Day Years Used Date Smoking Tobacco: Every Day Cigarettes Comments Unknown Sex and Gender Information Value Date Recorded Sex Assigned at Not on file Legal Sex Female 8:25 PM TALCER Gender Identity Not on file Sexual Orientation Not on file documented as of this encounter Plan of Treatment Not on file documented as of this encounter Visit Diagnoses Not on filedocumented in this encounter Care Teams Reading Efficiency Course Director Relationship Specialty Start Date End Date Selene Cerrato NP PCP - General Internal Medicine 09/03/22 08/11/23 Sandra Nayak MD [address] [place] [address] [address] PCP - General Family Medicine 08/12/23 Earle Montez MD [phone] [place] [address] Surgeon Colon and Rectal Surgery 08/12/23 documented as of this encounter
--- OUTSIDE RECORDS SUMMARY | 2025-08-15 17:09 | XMS_ITS | Clinical Summary ---
Author Organization [facility] Address [address] [place] [address] Care Team Providers Care Mail Processing Equipment Mechanic Name Role Phone Emiliano Kelley MD Primary [...] age to complete this topic Care Teams Mail Processing Equipment Mechanic Relationship Specialty Start Date End Date Emiliano Kelley MD PCP - General 12/27/13
--- OUTSIDE RECORDS SUMMARY | 2025-08-15 17:09 | XMS_ITS | Encounter Summary ---
Author Organization [facility] Facility Care Team Providers Care Temperature Logging Operator Name Role Phone Selene Cerrato NP Primary Care Provider [phone] Earle Montez MD Unavailable [phone] Sandra Nayak MD Primary Care Provider + Encounter Details Date Type Department Care Team (Latest Contact Info) Description 10/16/2016 Orders Only [facility] CLINCONV ProviderCheko MD [address] [place] [address] Social History Tobacco Use Types Packs/Day Years Used Date Smoking Tobacco: Never Assessed Comments Unknown Sex and Gender Information Value Date Recorded Sex Assigned at Not on file Legal Sex Female 8:25 PM MANAGER DISH Gender Identity Not on file Sexual Orientation Not on file documented as of this encounter Plan of Treatment Not on file documented as of this encounter Procedures Procedure Name Priority Date/Time Associated Diagnosis Comments CARDIOLOGY REPORT 10/16/2016 12: 00 AM MANAGER DISH documented in this encounter Results * CARDIOLOGY REPORT (10/16/2016 12:00 AM MANAGER DISH) Anatomical Region Laterality Modality Other Narrative 10/16/2016 12:00 AM MANAGER DISH Ordered by an unspecified provider. Historical Provider [facility] [place] Final Result documented in this encounter Visit Diagnoses Not on filedocumented in this encounter Care Teams Temperature Logging Operator Relationship Specialty Start Date End Date Selene Cerrato NP PCP - General Internal Medicine 09/03/22 08/11/23 Sandra Nayak MD [address] [place] [address] [address] PCP - General Family Medicine 08/12/23 Earle Montez MD [phone] [place] [address] Surgeon Colon and Rectal Surgery 08/12/23 documented as of this encounter
--- OUTSIDE RECORDS SUMMARY | 2025-08-15 17:09 | XMS_ITS | Encounter Summary ---
Author Organization [facility] Facility Care Team Providers Care Customer Trainer Name Role Phone Selene Cerrato NP Primary Care Provider [phone] Earle Montez MD Unavailable [phone] Sandra Nayak MD Primary Care Provider + Encounter Details Date Type Department Care Team (Latest Contact Info) Description 08/16/2016 Orders Only [facility] CLINCONV ProviderCheko MD [address] [place] [address] Social History Tobacco Use Types Packs/Day Years Used Date Smoking Tobacco: Never Assessed Comments Unknown Sex and Gender Information Value Date Recorded Sex Assigned at Not on file Legal Sex Female 8:25 PM OPERATING ROOM TECHNICIAN Gender Identity Not on file Sexual Orientation Not on file documented as of this encounter Plan of Treatment Not on file documented as of this encounter Procedures Procedure Name Priority Date/Time Associated Diagnosis Comments PROCEDURE - RESULT 08/16/2016 12 :00 AM OPERATING ROOM TECHNICIAN documented in this encounter Results * PROCEDURE - RESULT (08/16/2016 12:00 AM OPERATING ROOM TECHNICIAN) Narrative 08/16/2016 12:00 AM OPERATING ROOM TECHNICIAN Ordered by an unspecified provider. Historical Provider Final Res ult documented in this encounter Visit Diagnoses Not on filedocumented in this encounter Care Teams Customer Trainer Relationship Specialty Start Date End Date Selene Cerrato NP PCP - General Internal Medicine 09/03/22 08/11/23 Sandra Nayak MD [address] [place] [address] PCP - General Family Medicine 08/12/23 Earle Montez MD [address] [facility] [phone] [place] [address] Surgeon Colon and Rectal Surgery 08/12/23 documented as of this encounter
--- OUTSIDE RECORDS SUMMARY | 2025-08-15 17:09 | XMS_ITS | Encounter Summary ---
Author Organization [facility] Address [address] [place] [address] Care Team Providers Care Coating And Embossing Unit Operator Name Role Phone Emiliano Kelley MD Primary Care Provider José Luis villegas Encounter Details Date Type Department Care Team (Latest Contact Info) Description 06/23/2018 Abstract [facility] , Pedro Pablo Gutierrez MD [...] on filedocumented in this encounter Care Teams Coating And Embossing Unit Operator Relationship Specialty Start Date End Date Emiliano Kelley MD PCP - General 12/27/13 documented as of this encounter
--- OUTSIDE RECORDS SUMMARY | 2025-08-15 17:09 | XMS_ITS | Clinical Summary ---
Author Organization [facility] Address [address] [facility] [place] [address] Care Team Providers Care Independent Marketing Consultant Name Role Phone Earle Montez MD Unavailable [phone] Sandra Nayak MD Primary Care Provider [...] (09/26/2022): Added automatically from request for surgery [id number] Surgical History Surgery Date Site/Laterality Comments AUGMENTATION [...] on file Legal Sex Female 8:25 PM MACHINE ACCOUNTANT Gender Identity Not on file Sexual Orientation Not on file Last Filed Vital Signs Vital Sign Reading Time Taken Comments Blood Pressure 156/92 08/12/2023 9:05 AM MACHINE ACCOUNTANT Pulse 90 08/12/2023 9:05 AM MACHINE ACCOUNTANT Temperature 36.2 C (97.2 F) 08/12/2023 9:05 AM MACHINE ACCOUNTANT Respiratory Rate - - Oxygen Saturation 97% 10/29/2016 3:30 PM CDT Inhaled Oxygen Concentration - - Weight 67.2 kg (148 lb 3.2 oz) 08/12/2023 9:05 A M MACHINE ACCOUNTANT Height 166.4 cm (5' 5.5) 08/12/2023 9:05 AM MACHINE ACCOUNTANT Body Mass Index 24.29 08/12/2023 9:05 AM MACHINE ACCOUNTANT Plan of Treatment Health Maintenance Due Date [...] season) 04/18/202501/2021 Influenza Vaccine (#1) 2025 Insurance [employer] Care Teams Independent Marketing Consultant Relationship Specialty Start Date End Date Sandra Nayak MD [address] [place] [address] [address] [place] [address] PCP - General Family Medicine 08/12/23 Earle Montez MD [phone] [place] [address] Surgeon Colon and Rectal Surgery 08/12/23
--- OUTSIDE RECORDS SUMMARY | 2025-08-15 17:09 | XMS_ITS | Clinical Summary ---
Author Organization [facility] Address [address] [facility] [place] [address] Care Team Providers Care Electronics Engineer Name Role Phone Sandra Nayak MD Primary Care Provider [phone] Source Comments [facility],non-owned Affiliates and Associated Physician Practices is amultiple site organization consisting of ambulatory clinics and hospital sitesin [place], [place], [place] and [place]. This disclosure is being madepursuant to the Care Everywhere program and may not contain all information available regarding this patient. Last updated 18.[facility] Allergies Active Allergy Reactions Criticality Noted Date Comments Contrast-Iodinated Agents For Ct/Other Rash Medium 07/31/2016 Medications * Be aware that medications may not be up to date on this document. Alwaysverify current medications with the patient. vitamin D, ergocalciferol, (DRISDOL) 06127 UNITS capsule Take 50,000 Units by mouth [...] on file Legal Sex Female 5:30 AM ELECTRICAL REPAIRER Gender Identity Not on file Sexual Orientation Not on file Last Filed Vital Signs Vital Sign Reading Time Taken Comments Blood Pressure 101/71 08/16/2016 10:40 AM ELECTRICAL REPAIRER Pulse 69 08/16/2016 10:40 AM ELECTRICAL REPAIRER Temperature 36.1 C (97 F) 08/16/2016 10:25 AM ELECTRICAL REPAIRER Respiratory Rate 16 08/16/2016 10:40 AM ELECTRICAL REPAIRER Oxygen Saturation 95% 08/16/2016 10:40 AM ELECTRICAL REPAIRER Inhaled Oxygen Concentration - - Weight 72.6 kg (160 lb) 08/16/2016 9:01 AM ELECTRICAL REPAIRER Height 165.1 cm (5' 5) 08/16/2016 9:01 AM ELECTRICAL REPAIRER Body Mass Index 26.63 08/16/2016 9:01 AM ELECTRICAL REPAIRER Plan of Treatment Health Maintenance Due Date [...] if suspicious findings are present clinically. An [employer] Certified Facility. Procedure Note [...] if suspicious findings are present clinically. An [employer] Certified Facility. Mulugeta Ma MD MAMMO ORDERABLES Edited Result - Final from Last 3 Months or Most Recently Relevant to Health Maintenance Insurance [employer] Care Teams Electronics Engineer Relationship Specialty Start Date End Date Sandra Nayak MD [address] [place] [address] KATHERIN Grijalva [phone] PCP - General Family Medicine 08/16/16
--- NOTE | 2025-08-15 18:08 | ED_ITS ---
HPI - Eye Problem General Chief complaint: Eye Problems Stated complaint: poison from a cactus in eyes Time Seen by Provider: 08/15/25 17:05 Source: patient Mode of arrival: ambulatory Limitations: no limitations History of Present Illness HPI Narrative: This is a 60 year old female that presents to the ER for irritation to the left eye. 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 Reports irritation, tearing, photophobia. Reports blurry vision bilaterally, although patient is not wearing her glasses. Related Data Allergies Allergy/AdvReac Type Severity Reaction Status Date / Time gadobenic acid (From Allergy Intermediate Nausea and Verified 08/15/25 15:00 contrast - MRI) Vomiting iohexol (From contrast - CT, Allergy Intermediate Nausea and Verified 08/15/25 15:00 X-RAY) Vomiting Review of Systems Review of Systems: All systems reviewed & are unremarkable except as noted in HPI and below PMFSH Past Medical History Medical History Rectal bleeding Rectal prolapse Colon cancer screening Depression Surgical History Surgical History H/O: hysterectomy Family History Family History Mother Hypertension Heart disease Thyroid disease Lupus Sibling Alcohol abuse Grandparent Diabetes mellitus Social History Social History Smoking status: Current every day smoker Tobacco type: e-cigarettes/vaping Additional smoking assessment comments: 3 cigarettes a week but vapes Alcohol intake: current Alcohol use details: occasionally Substance use: never Substance use type: does not use Lack of Transportation: No Lack of Food: Never True Current Housing: I Have Housing Concerned About Future Housing: No Difficulty Paying Gas/Electric Bills: No Difficulty Paying for Meds: No Currently Unemployed: No Education: Don't Know Difficulty w/ Childcare or Family Care: No Living arrangements: with family Spiritual care concerns: No Exam Narrative: GENERAL: Well-appearing, well-nourished, and in no acute distress. HEAD: Normocephalic, atraumatic. EYES: PERRLA and EOMI. Bilateral conjunctival injection. Tearing of the left eye. Visual acuity 20/50 left eye, 20/40 right eye. No fluorescein stain uptake. Eye pressure is 10 bilaterally EXTREMITIES: Normal range of motion. No edema. SKIN: Warm, dry, no rash. NEURO: No focal deficits. Alert and oriented x3. PSYCH: Normal mood and affect Course Consultations Ophthalmology: Time of Consult: 19:12 I have discussed the care of this patient with the following provider: Spoke with Dr. Zaldivar. Recs erythromycin ointment, f/u in clinic Vital Signs Vital signs: Vital Signs Temperature 97.4 F L 08/15/25 15:02 Pulse Rate 76 08/15/25 15:02 Respiratory Rate 18 08/15/25 15:02 Blood Pressure 134/67 08/15/25 15:02 Pulse Oximetry 100 08/15/25 15:02 Oxygen Delivery Room Air 08/15/25 15:02 Temperature 97.5 F L 08/15/25 19:33 Pulse Rate 82 08/15/25 19:33 Respiratory Rate 16 08/15/25 19:33 Blood Pressure 138/82 08/15/25 19:33 Pulse Oximetry 94 08/15/25 19:33 Oxygen Delivery Room Air 08/15/25 15:02 MDM MDM Narrative Medical decision making narrative: Patient presents to the emergency department after cutting 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 Conjunctival injection and tearing noted. No foreign body is noted. No fluorescein stain uptake. Eye pressure is normal. Visual acuity 20/50 in the affected eye, 20/40 in the good eye. Although patient does not have her glasses on. Poison control was contacted. Recommend eye wash for 10 minutes, this was done. Consult with Ophthalmology. Ophthalmology has made a follow-up appointment for her. Recommending antibiotic eye ointment. Patient was given warnings to return to the ER Differential Diagnosis Differential Diagnosis: corneal abrasion, foreign body, iritis, conjunctivitis Critical Care Time Critical Care Time Critical Care Time: No Discharge Plan Discharge Clinical Impression: Foreign body in eye Qualifiers: Encounter type: initial encounter Laterality: left Qualified Code(s): T15.92XA - Foreign body on external eye, part unspecified, left eye, initial encounter Patient Disposition: Home Condition: Stable Instructions: Antibiotic Form Additional Instructions: Return to the ER if you experience fever, redness and swelling of your eye, worsening visual changes, or any other symptoms that are concerning to you Apply antibiotic ointment as prescribed You have an appointment with [facility] August 17 9:15AM. Phone number [phone] You may also follow up with your telecom specialist Patient Language: [place] Prescriptions: New erythromycin 5 mg/gram (0.5 %) ointment 0.5 inch EACH EYE BID 5 Days Qty: 3.5 0RF No Action celecoxib 200 mg capsule 200 mg PO BID Qty: 180 1RF alendronate 70 mg tablet 70 mg PO WEEKLY Qty: 4 4RF duloxetine 60 mg capsule,delayed release(DR/EC) 60 mg PO DAILY Qty: 90 1RF trazodone 100 mg tablet 100 mg PO QHS PRN (Reason: insomnia) Qty: 90 0RF furosemide 20 mg tablet 20 mg PO DAILY Qty: 90 0RF Follow-up/Referrals: Serjio Gutierrez MD [Primary Care Provider, Family Practice]
--- NOTE | 2025-08-15 18:15 | PC.NURSE ---
pt given fluids through [facility] per EDP verbal order
--- NOTE | 2025-08-15 18:25 | PC.NURSE ---
Left eye irrigated for 10 minutes with normal saline. Tolerated well.
[2025-08-15] MEDS: ERYTHROMYCIN OPHTH OINTMENT 1 GM TUBE 1 APPLIC LEFT EYE (19:30)
[2025-08-15 19:33] VITALS: BP 138/82; PULSE 82; RESP 16; TEMP 36.4; O2SAT 94
== END 2025-08-15 19:35 | disposition home or self-care (01) ==
PROVIDERS: Emergency Provider Physician Assistant; PCP Family Medicine
DX: T15.92XA Foreign body on external eye, part unspecified, left eye, initial encounter (principal); W44.8XXA Other foreign body entering into or through a natural orifice, initial encounter; F17.290 Nicotine dependence, other tobacco product, uncomplicated; F17.210 Nicotine dependence, cigarettes, uncomplicated
CPT/HCPCS: 99283; A9270; J7030